=== PATIENT | female | born 1970 | race African-American/Black ===

== ENCOUNTER 2018-02-13 15:37 | Outpatient (CLI) | payer OTHER ==
[~2018-02-13] VITALS: Ht 160 cm; Wt 86.0 kg
[~2018-02-13 15:37] MED LIST: BIRTH CONTROL PILLS PO
[2018-02-13] MEDS ORDERED: AMPYRA10 MG PO (16:19)
[2018-02-13] MEDS ORDERED: PROZAC 10MG10 MG PO (16:21)
[2018-02-13 16:24] LABS: BASO % 0.4 % (0.0-2.0); EOS # 0.1 (0.0-0.7); GRAN # 2.8 (1.4-6.5); GRAN % 54.9 % (42.2-75.2); HEMOGLOBIN 10.6 g/dl (12.5-16.0); LYMPH # 1.3 (1.2-3.4); LYMPH % 26.6 % (20.0-51.0); MEAN CELL VOLUME 91 fl (80.0-100.0); MEAN CORPUSCULAR HEMOGLOBIN 29 pg (27.0-31.0); MEAN CORPUSCULAR HGB CONC 32 g/dl (33.0-37.0); MEAN PLATELET VOLUME 10.9 fl (7.4-10.4); MONO # 0.9 (0.1-0.6); MONO % 16.9 % (1.7-9.3); PLATELET COUNT 220 K/mm3 (130-400); RED BLOOD COUNT 3.69 M/mm3 (4.10-5.30); REDCELL DISTRIBUTION WIDTH-CV 13.5 % (11.5-14.5)
[2018-02-13 16:25] LABS: HEMATOCRIT 33.4 % (37.0-47.0)
[2018-02-13 16:28] VITALS: BP 131/80; PULSE 76; TEMP 98.5
[2018-02-13 16:33] LABS: ALBUMIN 3.6 gm/dL (3.5-5.0); BILIRUBIN,TOTAL 0.3 mg/dL (0.0-1.0); CALCIUM 8.4 mg/dL (8.4-10.2); CREATININE, serum 0.84 mg/dL (0.52-1.25); POTASSIUM 3.7 mmol/L (3.4-5.0)
== END 2018-02-13 19:00 | disposition home or self-care (01) ==
LOC: EUO 15:37
PROVIDERS: Psychiatry & Neurology Neurology
DX: G35 Multiple sclerosis (principal); Z79.899 Other long term (current) drug therapy
CPT/HCPCS: J2323; J7050

== ENCOUNTER 2018-03-19 14:34 | Outpatient (CLI) | payer OTHER ==
[~2018-03-19] VITALS: Ht 160 cm; Wt 60.4 kg
[~2018-03-19 14:34] MED LIST changes: +AMPYRA10 MG PO; +PROZAC 10MG10 MG PO
[2018-03-19 15:23] LABS: BASO % 0.3 % (0.0-2.0); EOS # 0.1 (0.0-0.7); EOS % 1.2 % (0-4.0); GRAN # 2.5 (1.4-6.5); GRAN % 41.9 % (42.2-75.2); HEMOGLOBIN 10.9 g/dl (12.5-16.0); LYMPH # 2.5 (1.2-3.4); LYMPH % 42.2 % (20.0-51.0); MEAN CELL VOLUME 88 fl (80.0-100.0); MEAN CORPUSCULAR HEMOGLOBIN 29 pg (27.0-31.0); MEAN CORPUSCULAR HGB CONC 32 g/dl (33.0-37.0); MEAN PLATELET VOLUME 10.3 fl (7.4-10.4); MONO # 0.8 (0.1-0.6); MONO % 14.2 % (1.7-9.3); PLATELET COUNT 217 K/mm3 (130-400); RED BLOOD COUNT 3.83 M/mm3 (4.10-5.30); REDCELL DISTRIBUTION WIDTH-CV 13.5 % (11.5-14.5)
[2018-03-19 15:24] LABS: HEMATOCRIT 33.7 % (37.0-47.0)
[2018-03-19 15:37] LABS: ALBUMIN 3.7 gm/dL (3.5-5.0); BILIRUBIN,TOTAL 0.5 mg/dL (0.0-1.0); CALCIUM 8.4 mg/dL (8.4-10.2); CREATININE, serum 0.76 mg/dL (0.52-1.25); POTASSIUM 3.4 mmol/L (3.4-5.0); TOTAL PROTEIN 7.2 gm/dL (6.4-8.2)
[2018-03-19 16:58] VITALS: BP 125/75; PULSE 78; TEMP 98.5
[2018-03-19] MEDS ORDERED: TRIVORA-281 TAB PO (17:03)
[2018-03-19] MEDS ORDERED: PROZAC 10MG10 MG PO (17:04)
[2018-03-19] MEDS ORDERED: PRILOSEC 20MG20 MG PO (17:04)
[2018-03-19] MEDS ORDERED: VITAMIN C500 MG PO (17:05)
[2018-03-19] MEDS ORDERED: DETROL LA 2 MG2 MG PO (17:05)
[2018-03-19] MEDS ORDERED: FERROUSAL325 MG PO (17:06)
[2018-03-19] MEDS ORDERED: B-121000 MCG PO (17:06)
[2018-03-19] MEDS ORDERED: FOLIC ACID 11 MG/TA1 PO (17:07)
== END 2018-03-19 19:13 | disposition home or self-care (01) ==
LOC: EUO 14:34
PROVIDERS: Psychiatry & Neurology Neurology
DX: G35 Multiple sclerosis (principal); Z79.899 Other long term (current) drug therapy
CPT/HCPCS: J2323; J7050

== ENCOUNTER 2018-05-20 14:56 | Outpatient (CLI) | payer OTHER ==
[~2018-05-20 14:56] MED LIST changes: +B-121000 MCG PO; +DETROL LA 2 MG2 MG PO; +FERROUSAL325 MG PO; +FOLIC ACID 11 MG/TA1 PO; +PRILOSEC 20MG20 MG PO; +TRIVORA-281 TAB PO; +VITAMIN C500 MG PO
[2018-05-20 15:39] LABS: BASO % 0.5 % (0.0-2.0); EOS # 0.1 (0.0-0.7); EOS % 1.6 % (0-4.0); GRAN # 2.2 (1.4-6.5); GRAN % 39.8 % (42.2-75.2); HEMOGLOBIN 10.6 g/dl (12.5-16.0); LYMPH # 2.4 (1.2-3.4); LYMPH % 43.9 % (20.0-51.0); MEAN CELL VOLUME 90 fl (80.0-100.0); MEAN CORPUSCULAR HEMOGLOBIN 30 pg (27.0-31.0); MEAN CORPUSCULAR HGB CONC 33 g/dl (33.0-37.0); MEAN PLATELET VOLUME 10.7 fl (7.4-10.4); MONO # 0.8 (0.1-0.6); MONO % 13.8 % (1.7-9.3); PLATELET COUNT 244 K/mm3 (130-400); RED BLOOD COUNT 3.58 M/mm3 (4.10-5.30); REDCELL DISTRIBUTION WIDTH-CV 14.7 % (11.5-14.5)
[2018-05-20 15:41] LABS: HEMATOCRIT 32.3 % (37.0-47.0)
[2018-05-20 16:07] LABS: ALBUMIN 3.8 gm/dL (3.5-5.0); BILIRUBIN,TOTAL 0.6 mg/dL (0.0-1.0); CALCIUM 8.5 mg/dL (8.4-10.2); CREATININE, serum 0.8 mg/dL (0.52-1.25); POTASSIUM 3.9 mmol/L (3.4-5.0); TOTAL PROTEIN 7.1 gm/dL (6.4-8.2)
[2018-05-20 17:23] VITALS: BP 125/75; PULSE 71; TEMP 97.8
== END 2018-05-20 17:58 | disposition home or self-care (01) ==
LOC: EUO 14:56
PROVIDERS: Psychiatry & Neurology Neurology
DX: G35 Multiple sclerosis (principal); Z79.899 Other long term (current) drug therapy
CPT/HCPCS: J2323; J7050

== ENCOUNTER 2018-06-17 12:41 | Outpatient (CLI) | payer OTHER ==
[2018-06-17 13:11] LABS: BASO % 0.7 % (0.0-2.0); EOS # 0.1 (0.0-0.7); EOS % 1.4 % (0-4.0); GRAN # 2.2 (1.4-6.5); GRAN % 39.7 % (42.2-75.2); HEMOGLOBIN 10.9 g/dl (12.5-16.0); LYMPH # 2.5 (1.2-3.4); LYMPH % 45.4 % (20.0-51.0); MEAN CELL VOLUME 90 fl (80.0-100.0); MEAN CORPUSCULAR HEMOGLOBIN 29 pg (27.0-31.0); MEAN CORPUSCULAR HGB CONC 32 g/dl (33.0-37.0); MEAN PLATELET VOLUME 9.9 fl (7.4-10.4); MONO # 0.7 (0.1-0.6); MONO % 12.6 % (1.7-9.3); PLATELET COUNT 243 K/mm3 (130-400); RED BLOOD COUNT 3.75 M/mm3 (4.10-5.30); REDCELL DISTRIBUTION WIDTH-CV 14.6 % (11.5-14.5)
[2018-06-17 13:14] LABS: HEMATOCRIT 33.7 % (37.0-47.0)
[2018-06-17 13:18] LABS: ALBUMIN 3.8 gm/dL (3.5-5.0); BILIRUBIN,TOTAL 0.4 mg/dL (0.0-1.0); CALCIUM 8.9 mg/dL (8.4-10.2); CREATININE, serum 0.76 mg/dL (0.52-1.25); POTASSIUM 4.2 mmol/L (3.4-5.0); TOTAL PROTEIN 6.9 gm/dL (6.4-8.2)
[2018-06-17 13:48] VITALS: BP 106/68; PULSE 69; TEMP 98.5
== END 2018-06-17 15:08 | disposition home or self-care (01) ==
LOC: EUO 12:41
PROVIDERS: Psychiatry & Neurology Neurology
DX: G35 Multiple sclerosis (principal); Z79.899 Other long term (current) drug therapy
CPT/HCPCS: J2323; J7050

== ENCOUNTER 2018-07-18 12:55 | Outpatient (CLI) | payer OTHER ==
[2018-07-18 13:28] LABS: BASO % 0.7 % (0.0-2.0); EOS # 0.1 (0.0-0.7); EOS % 1.8 % (0-4.0); HEMOGLOBIN 11.5 g/dl (12.5-16.0); LYMPH # 2.7 (1.2-3.4); LYMPH % 48.5 % (20.0-51.0); MEAN CELL VOLUME 91 fl (80.0-100.0); MEAN CORPUSCULAR HEMOGLOBIN 29 pg (27.0-31.0); MEAN CORPUSCULAR HGB CONC 32 g/dl (33.0-37.0); MONO # 0.7 (0.1-0.6); MONO % 11.9 % (1.7-9.3); PLATELET COUNT 525 K/mm3 (130-400); RED BLOOD COUNT 3.97 M/mm3 (4.10-5.30); REDCELL DISTRIBUTION WIDTH-CV 14.3 % (11.5-14.5)
[2018-07-18 13:29] LABS: HEMATOCRIT 36.1 % (37.0-47.0)
[2018-07-18 13:40] LABS: ALBUMIN 4.3 gm/dL (3.5-5.0); BILIRUBIN,TOTAL 0.4 mg/dL (0.0-1.0); CALCIUM 9.3 mg/dL (8.4-10.2); CREATININE, serum 0.86 mg/dL (0.52-1.25); POTASSIUM 3.9 mmol/L (3.4-5.0); TOTAL PROTEIN 8.1 gm/dL (6.4-8.2)
[2018-07-18 14:17] VITALS: BP 99/61; PULSE 73; TEMP 97.9
== END 2018-07-18 15:30 | disposition home or self-care (01) ==
LOC: EUO 12:55
PROVIDERS: Psychiatry & Neurology Neurology
DX: G35 Multiple sclerosis (principal); Z79.899 Other long term (current) drug therapy
CPT/HCPCS: J2323; J7050

== ENCOUNTER 2018-08-15 14:02 | Outpatient (CLI) | payer OTHER ==
[~2018-08-15] VITALS: Ht 160 cm; Wt 62.7 kg
[2018-08-15 14:48] LABS: BASO % 0.5 % (0.0-2.0); EOS # 0.1 (0.0-0.7); GRAN # 2.4 (1.4-6.5); HEMATOCRIT 38.5 % (37.0-47.0); HEMOGLOBIN 12.4 g/dl (12.5-16.0); LYMPH # 3.4 (1.2-3.4); LYMPH % 50.8 % (20.0-51.0); MEAN CELL VOLUME 90 fl (80.0-100.0); MEAN CORPUSCULAR HEMOGLOBIN 29 pg (27.0-31.0); MEAN CORPUSCULAR HGB CONC 32 g/dl (33.0-37.0); MEAN PLATELET VOLUME 9.7 fl (7.4-10.4); MONO # 0.7 (0.1-0.6); MONO % 10.5 % (1.7-9.3); PLATELET COUNT 308 K/mm3 (130-400); RED BLOOD COUNT 4.26 M/mm3 (4.10-5.30); REDCELL DISTRIBUTION WIDTH-CV 14.6 % (11.5-14.5)
[2018-08-15 14:52] LABS: ALBUMIN 4.4 gm/dL (3.5-5.0); BILIRUBIN,TOTAL 0.4 mg/dL (0.0-1.0); CALCIUM 9.3 mg/dL (8.4-10.2); CREATININE, serum 0.93 mg/dL (0.52-1.25); POTASSIUM 4.1 mmol/L (3.4-5.0); TOTAL PROTEIN 8.1 gm/dL (6.4-8.2)
[2018-08-15 15:37] VITALS: BP 110/67; PULSE 67; TEMP 97
== END 2018-08-15 16:44 | disposition home or self-care (01) ==
LOC: EUO 14:02
PROVIDERS: Psychiatry & Neurology Neurology
DX: G35 Multiple sclerosis (principal); Z79.899 Other long term (current) drug therapy
CPT/HCPCS: J2323

== ENCOUNTER 2018-09-12 13:54 | Outpatient (CLI) | payer OTHER ==
[~2018-09-12] VITALS: Ht 160 cm; Wt 64.2 kg
[2018-09-12 14:36] LABS: BASO # 0.1 (0.0-0.2); BASO % 1.1 % (0.0-2.0); EOS # 0.1 (0.0-0.7); EOS % 2.4 % (0-4.0); GRAN # 1.3 (1.4-6.5); LYMPH # 2.6 (1.2-3.4); LYMPH % 55.8 % (20.0-51.0); MEAN CELL VOLUME 89 fl (80.0-100.0); MEAN CORPUSCULAR HEMOGLOBIN 29 pg (27.0-31.0); MEAN CORPUSCULAR HGB CONC 33 g/dl (33.0-37.0); MEAN PLATELET VOLUME 9.5 fl (7.4-10.4); MONO # 0.6 (0.1-0.6); MONO % 13.5 % (1.7-9.3); PLATELET COUNT 266 K/mm3 (130-400); RED BLOOD COUNT 3.76 M/mm3 (4.10-5.30); REDCELL DISTRIBUTION WIDTH-CV 14.6 % (11.5-14.5)
[2018-09-12 14:42] LABS: HEMATOCRIT 33.4 % (37.0-47.0)
[2018-09-12 14:46] LABS: ALBUMIN 3.7 gm/dL (3.5-5.0); BILIRUBIN,TOTAL 0.3 mg/dL (0.0-1.0); CALCIUM 8.7 mg/dL (8.4-10.2); CREATININE, serum 1.02 mg/dL (0.52-1.25); POTASSIUM 4.3 mmol/L (3.4-5.0); TOTAL PROTEIN 6.9 gm/dL (6.4-8.2)
[2018-09-12 15:21] VITALS: BP 100/66; PULSE 69; TEMP 97.9
== END 2018-09-12 18:25 | disposition home or self-care (01) ==
LOC: EUO 13:54
PROVIDERS: Psychiatry & Neurology Neurology
DX: G35 Multiple sclerosis (principal); Z79.899 Other long term (current) drug therapy
CPT/HCPCS: J2323

== ENCOUNTER 2018-10-10 10:50 | Outpatient (CLI) | payer OTHER ==
[~2018-10-10] VITALS: Ht 160 cm; Wt 64.3 kg
[2018-10-10 11:18] LABS: BASO % 0.5 % (0.0-2.0); EOS # 0.1 (0.0-0.7); EOS % 1.9 % (0-4.0); GRAN # 2.3 (1.4-6.5); GRAN % 40.4 % (42.2-75.2); HEMATOCRIT 35.7 % (37.0-47.0); HEMOGLOBIN 11.5 g/dl (12.5-16.0); LYMPH # 2.7 (1.2-3.4); LYMPH % 45.8 % (20.0-51.0); MEAN CELL VOLUME 90 fl (80.0-100.0); MEAN CORPUSCULAR HEMOGLOBIN 29 pg (27.0-31.0); MEAN CORPUSCULAR HGB CONC 32 g/dl (33.0-37.0); MEAN PLATELET VOLUME 9.4 fl (7.4-10.4); MONO # 0.6 (0.1-0.6); MONO % 11.1 % (1.7-9.3); PLATELET COUNT 277 K/mm3 (130-400); RED BLOOD COUNT 3.96 M/mm3 (4.10-5.30); REDCELL DISTRIBUTION WIDTH-CV 15.2 % (11.5-14.5)
[2018-10-10 11:30] LABS: ALBUMIN 3.9 gm/dL (3.5-5.0); BILIRUBIN,TOTAL 0.4 mg/dL (0.0-1.0); CALCIUM 8.6 mg/dL (8.4-10.2); CREATININE, serum 0.87 (0.52-1.25); POTASSIUM 4.3 mmol/L (3.4-5.0); TOTAL PROTEIN 7.1 gm/dL (6.4-8.2)
[2018-10-10 11:54] VITALS: BP 104/64; PULSE 77; TEMP 97.9
== END 2018-10-10 13:31 | disposition home or self-care (01) ==
LOC: EUO 10:50
PROVIDERS: Psychiatry & Neurology Neurology
DX: G35 Multiple sclerosis (principal); Z79.899 Other long term (current) drug therapy
CPT/HCPCS: J2323; J7050

== ENCOUNTER 2018-11-07 12:46 | Outpatient (CLI) | payer OTHER ==
[~2018-11-07] VITALS: Ht 160 cm; Wt 65.0 kg
[2018-11-07 13:18] LABS: BASO % 0.5 % (0.0-2.0); EOS # 0.1 (0.0-0.7); EOS % 1.9 % (0-4.0); GRAN # 2.4 (1.4-6.5); GRAN % 37.5 % (42.2-75.2); HEMOGLOBIN 11.6 g/dl (12.5-16.0); LYMPH # 3.1 (1.2-3.4); LYMPH % 49.4 % (20.0-51.0); MEAN CELL VOLUME 90 fl (80.0-100.0); MEAN CORPUSCULAR HEMOGLOBIN 29 pg (27.0-31.0); MEAN CORPUSCULAR HGB CONC 32 g/dl (33.0-37.0); MEAN PLATELET VOLUME 9.6 fl (7.4-10.4); MONO # 0.7 (0.1-0.6); MONO % 10.5 % (1.7-9.3); PLATELET COUNT 286 K/mm3 (130-400); RED BLOOD COUNT 3.97 M/mm3 (4.10-5.30); REDCELL DISTRIBUTION WIDTH-CV 14.7 % (11.5-14.5)
[2018-11-07 13:19] LABS: HEMATOCRIT 35.8 % (37.0-47.0)
[2018-11-07 13:31] LABS: ALBUMIN 3.9 gm/dL (3.5-5.0); BILIRUBIN,TOTAL 0.4 mg/dL (0.0-1.0); CALCIUM 8.7 mg/dL (8.4-10.2); CREATININE, serum 0.83 (0.52-1.25); POTASSIUM 4.1 mmol/L (3.4-5.0); TOTAL PROTEIN 7.1 gm/dL (6.4-8.2)
[2018-11-07 14:10] VITALS: BP 106/61; PULSE 80; TEMP 98.2
== END 2018-11-07 15:32 | disposition home or self-care (01) ==
LOC: EUO 12:46
PROVIDERS: Psychiatry & Neurology Neurology
DX: G35 Multiple sclerosis (principal); Z79.899 Other long term (current) drug therapy
CPT/HCPCS: J2323; J7050

== ENCOUNTER 2018-12-05 12:55 | Outpatient (CLI) | payer OTHER ==
[~2018-12-05] VITALS: Ht 160 cm; Wt 66.6 kg
[2018-12-05 13:35] LABS: BASO # 0.1 (0.0-0.2); BASO % 0.8 % (0.0-2.0); EOS # 0.1 (0.0-0.7); EOS % 1.9 % (0-4.0); GRAN # 2.4 (1.4-6.5); HEMATOCRIT 34.8 % (37.0-47.0); HEMOGLOBIN 11.5 g/dl (12.5-16.0); LYMPH % 47.6 % (20.0-51.0); MEAN CELL VOLUME 91 fl (80.0-100.0); MEAN CORPUSCULAR HEMOGLOBIN 30 pg (27.0-31.0); MEAN CORPUSCULAR HGB CONC 33 g/dl (33.0-37.0); MEAN PLATELET VOLUME 9.6 fl (7.4-10.4); MONO # 0.7 (0.1-0.6); MONO % 11.5 % (1.7-9.3); PLATELET COUNT 270 K/mm3 (130-400); RED BLOOD COUNT 3.82 M/mm3 (4.10-5.30); REDCELL DISTRIBUTION WIDTH-CV 14.8 % (11.5-14.5)
[2018-12-05 13:47] LABS: ALBUMIN 3.8 gm/dL (3.5-5.0); BILIRUBIN,TOTAL 0.5 mg/dL (0.0-1.0); CALCIUM 8.4 mg/dL (8.4-10.2); CREATININE, serum 0.94 (0.52-1.25); POTASSIUM 3.9 mmol/L (3.4-5.0); TOTAL PROTEIN 7.3 gm/dL (6.4-8.2)
[2018-12-05 14:30] VITALS: BP 114/65; PULSE 79; TEMP 98.1
== END 2018-12-05 16:19 | disposition home or self-care (01) ==
LOC: EUO 12:55
PROVIDERS: Psychiatry & Neurology Neurology
DX: G35 Multiple sclerosis (principal); Z79.899 Other long term (current) drug therapy
CPT/HCPCS: J2323; J7050

== ENCOUNTER 2019-01-02 14:11 | Outpatient (CLI) | payer OTHER ==
[2019-01-02 14:00] VITALS: BP 107/60; PULSE 63; TEMP 98.2
[2019-01-02 14:54] LABS: BASO % 0.4 % (0.0-2.0); EOS # 0.1 (0.0-0.7); EOS % 1.6 % (0-4.0); GRAN # 1.8 (1.4-6.5); HEMOGLOBIN 11.5 g/dl (12.5-16.0); LYMPH % 54.4 % (20.0-51.0); MEAN CELL VOLUME 90 fl (80.0-100.0); MEAN CORPUSCULAR HEMOGLOBIN 30 pg (27.0-31.0); MEAN CORPUSCULAR HGB CONC 33 g/dl (33.0-37.0); MEAN PLATELET VOLUME 9.9 fl (7.4-10.4); MONO # 0.6 (0.1-0.6); MONO % 11.2 % (1.7-9.3); PLATELET COUNT 281 K/mm3 (130-400); RED BLOOD COUNT 3.85 M/mm3 (4.10-5.30); REDCELL DISTRIBUTION WIDTH-CV 14.5 % (11.5-14.5)
[2019-01-02 15:00] LABS: HEMATOCRIT 34.8 % (37.0-47.0)
[2019-01-02 15:21] LABS: ALBUMIN 3.7 gm/dL (3.5-5.0); BILIRUBIN,TOTAL 0.4 mg/dL (0.0-1.0); CALCIUM 8.8 mg/dL (8.4-10.2); CREATININE, serum 0.79 (0.52-1.25); TOTAL PROTEIN 7.1 gm/dL (6.4-8.2)
== END 2019-01-02 17:12 | disposition home or self-care (01) ==
LOC: EUO 14:11
PROVIDERS: Psychiatry & Neurology Neurology
DX: G35 Multiple sclerosis (principal); Z79.899 Other long term (current) drug therapy
CPT/HCPCS: J2323

== ENCOUNTER 2019-01-30 14:13 | Outpatient (CLI) | payer OTHER ==
[2019-01-30 14:40] LABS: MEAN CELL VOLUME 90 fl (80.0-100.0); MEAN CORPUSCULAR HEMOGLOBIN 29 pg (27.0-31.0); MEAN CORPUSCULAR HGB CONC 32 g/dl (33.0-37.0); MEAN PLATELET VOLUME 9.7 fl (7.4-10.4); PLATELET COUNT 294 K/mm3 (130-400); REDCELL DISTRIBUTION WIDTH-CV 14.4 % (11.5-14.5)
[2019-01-30 15:00] VITALS: BP 107/58; PULSE 66; TEMP 98
[2019-01-30 15:00] LABS: ALBUMIN 3.9 gm/dL (3.5-5.0); BILIRUBIN,TOTAL 0.4 mg/dL (0.0-1.0); CALCIUM 8.7 mg/dL (8.4-10.2); CREATININE, serum 0.82 (0.52-1.25); POTASSIUM 4.3 mmol/L (3.4-5.0); TOTAL PROTEIN 7.2 gm/dL (6.4-8.2)
[2019-01-30 15:22] LABS: BAND 4 % (0-10); EOSINOPHIL 2 % (0-4); LYMPHOCYTE 54 % (20.0-51.0); NEUTROPHILS 39 % (42.0-75.2); NUCLEATED RED BLOOD CELL 1 (0-6)
[2019-01-30 15:23] LABS: PLATELET ESTIMATE NORMAL (NORMAL)
== END 2019-01-30 19:11 | disposition home or self-care (01) ==
LOC: EUO 14:13
PROVIDERS: Psychiatry & Neurology Neurology
DX: G35 Multiple sclerosis (principal); Z79.899 Other long term (current) drug therapy
CPT/HCPCS: J2323

== ENCOUNTER 2019-02-27 14:06 | Outpatient (CLI) | payer OTHER ==
[~2019-02-27] VITALS: Ht 160 cm; Wt 66.0 kg
[2019-02-27 14:15] VITALS: BP 109/65; PULSE 70; TEMP 98
[2019-02-27 14:40] LABS: BASO % 0.5 % (0.0-2.0); EOS # 0.1 (0.0-0.7); EOS % 1.9 % (0-4.0); GRAN # 2.3 (1.4-6.5); GRAN % 36.7 % (42.2-75.2); HEMOGLOBIN 11.5 g/dl (12.5-16.0); LYMPH # 3.2 (1.2-3.4); MEAN CELL VOLUME 89 fl (80.0-100.0); MEAN CORPUSCULAR HEMOGLOBIN 30 pg (27.0-31.0); MEAN CORPUSCULAR HGB CONC 33 g/dl (33.0-37.0); MEAN PLATELET VOLUME 9.7 fl (7.4-10.4); MONO # 0.6 (0.1-0.6); MONO % 9.7 % (1.7-9.3); PLATELET COUNT 281 K/mm3 (130-400); RED BLOOD COUNT 3.88 M/mm3 (4.10-5.30); REDCELL DISTRIBUTION WIDTH-CV 14.1 % (11.5-14.5)
[2019-02-27 14:42] LABS: HEMATOCRIT 34.7 % (37.0-47.0)
[2019-02-27 14:47] LABS: ALBUMIN 3.9 gm/dL (3.5-5.0); BILIRUBIN,TOTAL 0.4 mg/dL (0.0-1.0); CALCIUM 8.8 mg/dL (8.4-10.2); CREATININE, serum 0.85 (0.52-1.25); POTASSIUM 3.9 mmol/L (3.4-5.0)
--- NOTE | 2019-02-27 15:49 | NUR ---
Report to Chandrakant Srivastava RN who assumed care at this time.
== END 2019-02-27 16:28 | disposition home or self-care (01) ==
LOC: EUO 14:06
PROVIDERS: Psychiatry & Neurology Neurology
DX: G35 Multiple sclerosis (principal); Z79.899 Other long term (current) drug therapy
CPT/HCPCS: J2323; J7050

== ENCOUNTER 2019-03-27 14:04 | Outpatient (CLI) | payer OTHER ==
[~2019-03-27] VITALS: Ht 160 cm; Wt 67.0 kg
[2019-03-27 14:20] VITALS: BP 108/61; PULSE 76; TEMP 98.4
[2019-03-27 14:28] LABS: BASO % 0.6 % (0.0-2.0); EOS # 0.1 (0.0-0.7); GRAN # 2.3 (1.4-6.5); GRAN % 36.6 % (42.2-75.2); HEMOGLOBIN 11.7 g/dl (12.5-16.0); LYMPH # 3.3 (1.2-3.4); LYMPH % 51.1 % (20.0-51.0); MEAN CELL VOLUME 90 fl (80.0-100.0); MEAN CORPUSCULAR HEMOGLOBIN 30 pg (27.0-31.0); MEAN CORPUSCULAR HGB CONC 33 g/dl (33.0-37.0); MEAN PLATELET VOLUME 9.5 fl (7.4-10.4); MONO # 0.6 (0.1-0.6); MONO % 9.4 % (1.7-9.3); PLATELET COUNT 299 K/mm3 (130-400); RED BLOOD COUNT 3.96 M/mm3 (4.10-5.30); REDCELL DISTRIBUTION WIDTH-CV 14.4 % (11.5-14.5)
[2019-03-27 14:47] LABS: HEMATOCRIT 35.7 % (37.0-47.0)
[2019-03-27 14:59] LABS: ALBUMIN 3.9 gm/dL (3.5-5.0); BILIRUBIN,TOTAL 0.3 mg/dL (0.0-1.0); CALCIUM 8.5 mg/dL (8.4-10.2); CREATININE, serum 0.79 (0.52-1.25); POTASSIUM 3.8 mmol/L (3.4-5.0); TOTAL PROTEIN 7.1 gm/dL (6.4-8.2)
== END 2019-03-27 17:49 | disposition home or self-care (01) ==
LOC: EUO 14:04
PROVIDERS: Psychiatry & Neurology Neurology
DX: G35 Multiple sclerosis (principal); Z79.899 Other long term (current) drug therapy
CPT/HCPCS: J2323; J7050

== ENCOUNTER 2019-04-24 10:49 | Outpatient (CLI) | payer OTHER ==
[~2019-04-24] VITALS: Ht 160 cm; Wt 67.4 kg
[2019-04-24 11:46] LABS: ALBUMIN 4.1 gm/dL (3.5-5.0); BILIRUBIN,TOTAL 0.8 mg/dL (0.0-1.0); CALCIUM 8.9 mg/dL (8.4-10.2); CREATININE, serum 0.74 (0.52-1.25); POTASSIUM 4.6 mmol/L (3.4-5.0); TOTAL PROTEIN 7.4 gm/dL (6.4-8.2)
[2019-04-24 11:51] LABS: BASO % 0.5 % (0.0-2.0); EOS # 0.1 (0.0-0.7); EOS % 1.4 % (0-4.0); GRAN # 2.3 (1.4-6.5); GRAN % 36.9 % (42.2-75.2); HEMOGLOBIN 11.8 g/dl (12.5-16.0); LYMPH # 2.9 (1.2-3.4); LYMPH % 46.9 % (20.0-51.0); MEAN CELL VOLUME 91 fl (80.0-100.0); MEAN CORPUSCULAR HEMOGLOBIN 29 pg (27.0-31.0); MEAN CORPUSCULAR HGB CONC 32 g/dl (33.0-37.0); MEAN PLATELET VOLUME 10.4 fl (7.4-10.4); MONO # 0.9 (0.1-0.6); PLATELET COUNT 273 K/mm3 (130-400); RED BLOOD COUNT 4.03 M/mm3 (4.10-5.30); REDCELL DISTRIBUTION WIDTH-CV 14.6 % (11.5-14.5)
[2019-04-24 12:03] LABS: HEMATOCRIT 36.7 % (37.0-47.0)
[2019-04-24 13:30] VITALS: BP 105/62; PULSE 69; TEMP 98.5
== END 2019-04-24 14:12 | disposition home or self-care (01) ==
LOC: EUO 10:49
PROVIDERS: Psychiatry & Neurology Neurology
DX: G35 Multiple sclerosis (principal); Z79.899 Other long term (current) drug therapy
CPT/HCPCS: J2323; J7050

== ENCOUNTER 2019-05-21 13:04 | Outpatient (CLI) | payer OTHER ==
[~2019-05-21] VITALS: Ht 160 cm; Wt 67.1 kg
[2019-05-21 13:37] VITALS: BP 98/64; PULSE 69; TEMP 98.6
[2019-05-21 13:37] LABS: BASO % 0.3 % (0.0-2.0); EOS # 0.1 (0.0-0.7); EOS % 1.2 % (0-4.0); GRAN # 2.1 (1.4-6.5); GRAN % 34.4 % (42.2-75.2); HEMOGLOBIN 11.3 g/dl (12.5-16.0); LYMPH # 3.1 (1.2-3.4); LYMPH % 51.3 % (20.0-51.0); MEAN CELL VOLUME 89 fl (80.0-100.0); MEAN CORPUSCULAR HEMOGLOBIN 29 pg (27.0-31.0); MEAN CORPUSCULAR HGB CONC 33 g/dl (33.0-37.0); MEAN PLATELET VOLUME 9.8 fl (7.4-10.4); MONO # 0.8 (0.1-0.6); MONO % 12.6 % (1.7-9.3); PLATELET COUNT 284 K/mm3 (130-400); RED BLOOD COUNT 3.88 M/mm3 (4.10-5.30); REDCELL DISTRIBUTION WIDTH-CV 14.8 % (11.5-14.5)
[2019-05-21 13:40] LABS: HEMATOCRIT 34.6 % (37.0-47.0)
[2019-05-21 13:52] LABS: BILIRUBIN,TOTAL 0.3 mg/dL (0.0-1.0); CALCIUM 8.6 mg/dL (8.4-10.2); CREATININE, serum 0.76 (0.52-1.25); POTASSIUM 4.2 mmol/L (3.4-5.0); TOTAL PROTEIN 7.3 gm/dL (6.4-8.2)
== END 2019-05-21 19:00 | disposition home or self-care (01) ==
LOC: EUO 13:04
PROVIDERS: Psychiatry & Neurology Neurology
DX: G35 Multiple sclerosis (principal)
CPT/HCPCS: J2323; J7050

== ENCOUNTER → 2019-06-30 | Outpatient (CLI) | payer OTHER | LOC: MHCPAIN 15:26 | DX: M47.817 Spondylosis without myelopathy or radiculopathy, lumbosacral region (principal); M54.16 Radiculopathy, lumbar region | CPT/HCPCS: G0463 ==

== ENCOUNTER 2019-07-15 12:42 | Outpatient (CLI) | payer OTHER ==
[~2019-07-15] VITALS: Ht 160 cm; Wt 64.3 kg
[2019-07-15 13:17] LABS: BASO # 0.1 (0.0-0.2); BASO % 0.8 % (0.0-2.0); EOS # 0.1 (0.0-0.7); GRAN # 2.6 (1.4-6.5); GRAN % 38.7 % (42.2-75.2); HEMOGLOBIN 11.2 g/dl (12.5-16.0); LYMPH # 3.2 (1.2-3.4); LYMPH % 49.2 % (20.0-51.0); MEAN CELL VOLUME 91 fl (80.0-100.0); MEAN CORPUSCULAR HEMOGLOBIN 29 pg (27.0-31.0); MEAN CORPUSCULAR HGB CONC 32 g/dl (33.0-37.0); MEAN PLATELET VOLUME 9.5 fl (7.4-10.4); MONO # 0.6 (0.1-0.6); PLATELET COUNT 385 K/mm3 (130-400); RED BLOOD COUNT 3.91 M/mm3 (4.10-5.30); REDCELL DISTRIBUTION WIDTH-CV 15.4 % (11.5-14.5)
[2019-07-15 13:30] LABS: ALBUMIN 4.1 gm/dL (3.5-5.0); BILIRUBIN,TOTAL 0.5 mg/dL (0.0-1.0); CALCIUM 8.6 mg/dL (8.4-10.2); CREATININE, serum 0.81 (0.52-1.25); POTASSIUM 3.8 mmol/L (3.4-5.0); TOTAL PROTEIN 7.7 gm/dL (6.4-8.2)
[2019-07-15 13:31] LABS: HEMATOCRIT 35.6 % (37.0-47.0)
[2019-07-15 14:14] VITALS: BP 108/63; PULSE 70; TEMP 97.8
== END 2019-07-15 17:00 | disposition home or self-care (01) ==
LOC: EUO 12:42
PROVIDERS: Psychiatry & Neurology Neurology
DX: G35 Multiple sclerosis (principal); Z79.899 Other long term (current) drug therapy
CPT/HCPCS: J2323; J7050

== ENCOUNTER → 2019-08-06 | Outpatient (CLI) | payer OTHER | LOC: MHCPAIN 14:49 | DX: M54.17 Radiculopathy, lumbosacral region (principal); M48.061 Spinal stenosis, lumbar region without neurogenic claudication | CPT/HCPCS: G0463 ==

== ENCOUNTER 2019-08-12 10:23 | Outpatient (CLI) | payer OTHER ==
[~2019-08-12] VITALS: Ht 160 cm; Wt 64.4 kg
[2019-08-12 11:00] VITALS: BP 113/74; PULSE 77; TEMP 97.8
[2019-08-12 11:10] LABS: BASO % 0.3 % (0.0-2.0); EOS # 0.1 (0.0-0.7); EOS % 1.5 % (0-4.0); GRAN # 2.8 (1.4-6.5); HEMOGLOBIN 11.5 g/dl (12.5-16.0); LYMPH % 46.1 % (20.0-51.0); MEAN CELL VOLUME 91 fl (80.0-100.0); MEAN CORPUSCULAR HEMOGLOBIN 28 pg (27.0-31.0); MEAN CORPUSCULAR HGB CONC 31 g/dl (33.0-37.0); MEAN PLATELET VOLUME 9.9 fl (7.4-10.4); MONO # 0.6 (0.1-0.6); MONO % 8.8 % (1.7-9.3); PLATELET COUNT 257 K/mm3 (130-400); RED BLOOD COUNT 4.05 M/mm3 (4.10-5.30); REDCELL DISTRIBUTION WIDTH-CV 15.5 % (11.5-14.5)
[2019-08-12 11:18] LABS: HEMATOCRIT 36.9 % (37.0-47.0)
[2019-08-12 11:28] LABS: ALBUMIN 4.4 gm/dL (3.5-5.0); BILIRUBIN,TOTAL 0.8 mg/dL (0.0-1.0); CALCIUM 8.9 mg/dL (8.4-10.2); CREATININE, serum 0.78 (0.52-1.25); TOTAL PROTEIN 7.9 gm/dL (6.4-8.2)
== END 2019-08-12 13:50 | disposition home or self-care (01) ==
LOC: EUO 10:23
PROVIDERS: Psychiatry & Neurology Neurology
DX: G35 Multiple sclerosis (principal); Z79.899 Other long term (current) drug therapy
CPT/HCPCS: J2323; J7050

== ENCOUNTER → 2019-08-18 | Outpatient (CLI) | payer OTHER | LOC: MHCPAIN 14:28 | DX: M54.5 Low back pain (principal); R60.0 Localized edema ==

== ENCOUNTER → 2019-09-02 | Outpatient (CLI) | payer OTHER | LOC: MHCPAIN 15:08 | DX: M47.816 Spondylosis without myelopathy or radiculopathy, lumbar region (principal); M53.3 Sacrococcygeal disorders, not elsewhere classified | CPT/HCPCS: G0463 ==

== ENCOUNTER 2019-10-07 13:13 | Outpatient (CLI) | payer OTHER ==
[~2019-10-07] VITALS: Ht 160 cm; Wt 66.9 kg
[2019-10-07 13:36] LABS: BASO % 0.3 % (0.0-2.0); EOS # 0.1 (0.0-0.7); EOS % 1.2 % (0-4.0); GRAN % 40.2 % (42.2-75.2); HEMATOCRIT 37.1 % (37.0-47.0); LYMPH # 3.7 (1.2-3.4); LYMPH % 49.6 % (20.0-51.0); MEAN CELL VOLUME 88 fl (80.0-100.0); MEAN CORPUSCULAR HEMOGLOBIN 29 pg (27.0-31.0); MEAN CORPUSCULAR HGB CONC 32 g/dl (33.0-37.0); MEAN PLATELET VOLUME 9.8 fl (7.4-10.4); MONO # 0.6 (0.1-0.6); MONO % 8.4 % (1.7-9.3); PLATELET COUNT 278 K/mm3 (130-400); REDCELL DISTRIBUTION WIDTH-CV 15.3 % (11.5-14.5)
[2019-10-07 13:46] LABS: ALBUMIN 4.1 gm/dL (3.5-5.0); BILIRUBIN,TOTAL 0.5 mg/dL (0.0-1.0); CALCIUM 8.8 mg/dL (8.4-10.2); CREATININE, serum 0.73 (0.52-1.25); POTASSIUM 3.7 mmol/L (3.4-5.0); TOTAL PROTEIN 7.5 gm/dL (6.4-8.2)
[2019-10-07 14:35] VITALS: BP 109/62; PULSE 69; TEMP 97.6
== END 2019-10-07 15:40 | disposition home or self-care (01) ==
LOC: EUO 13:13
PROVIDERS: Psychiatry & Neurology Neurology
DX: G35 Multiple sclerosis (principal); Z79.2 Long term (current) use of antibiotics
CPT/HCPCS: J2323; J7050

== ENCOUNTER 2019-11-04 13:16 | Outpatient (CLI) | payer OTHER ==
[~2019-11-04] VITALS: Ht 160 cm; Wt 67.0 kg
[2019-11-04 13:43] LABS: BASO % 0.3 % (0.0-2.0); EOS # 0.1 (0.0-0.7); EOS % 1.2 % (0-4.0); GRAN # 2.5 (1.4-6.5); GRAN % 36.1 % (42.2-75.2); HEMOGLOBIN 11.4 g/dl (12.5-16.0); LYMPH # 3.7 (1.2-3.4); LYMPH % 52.9 % (20.0-51.0); MEAN CELL VOLUME 90 fl (80.0-100.0); MEAN CORPUSCULAR HEMOGLOBIN 29 pg (27.0-31.0); MEAN CORPUSCULAR HGB CONC 32 g/dl (33.0-37.0); MEAN PLATELET VOLUME 10.1 fl (7.4-10.4); MONO # 0.6 (0.1-0.6); MONO % 9.2 % (1.7-9.3); PLATELET COUNT 270 K/mm3 (130-400); RED BLOOD COUNT 3.99 M/mm3 (4.10-5.30); REDCELL DISTRIBUTION WIDTH-CV 14.7 % (11.5-14.5)
[2019-11-04 13:44] LABS: HEMATOCRIT 35.8 % (37.0-47.0)
[2019-11-04 14:20] LABS: ALBUMIN 4.2 gm/dL (3.5-5.0); BILIRUBIN,TOTAL 0.6 mg/dL (0.0-1.0); CALCIUM 8.8 mg/dL (8.4-10.2); CREATININE, serum 0.81 (0.52-1.25); POTASSIUM 4.1 mmol/L (3.4-5.0); TOTAL PROTEIN 7.5 gm/dL (6.4-8.2)
[2019-11-04] MEDS ORDERED: TYSABRI20 MG/ML IV (14:35)
[2019-11-04] MEDS ORDERED: VOLTAREN 75 DR75 MG PO (14:38)
[2019-11-04] MEDS ORDERED: NEURONTIN100 MG/CAP PO (14:38)
[2019-11-04 14:39] VITALS: BP 101/71; TEMP 97.8
[2019-11-04 15:01] VITALS: BP 106/72; PULSE 61
== END 2019-11-04 15:47 | disposition home or self-care (01) ==
LOC: EUO 13:16
PROVIDERS: Psychiatry & Neurology Neurology
DX: G35 Multiple sclerosis (principal); Z79.899 Other long term (current) drug therapy
CPT/HCPCS: J2323; J7050

== ENCOUNTER → 2019-11-20 | Outpatient (CLI) | payer OTHER ==
[~2019-11-20] MED LIST changes: +NEURONTIN100 MG/CAP PO; +TYSABRI20 MG/ML IV; +VOLTAREN 75 DR75 MG PO
== END ==
LOC: MHCPAIN 10:05
DX: M54.5 Low back pain (principal); M53.3 Sacrococcygeal disorders, not elsewhere classified; M48.061 Spinal stenosis, lumbar region without neurogenic claudication; G89.29 Other chronic pain
CPT/HCPCS: G0463; J1040; Q9967

== ENCOUNTER 2019-12-02 13:39 | Outpatient (CLI) | payer OTHER ==
[~2019-12-02] VITALS: Ht 160 cm; Wt 65.5 kg
[2019-12-02 14:08] LABS: HEMOGLOBIN 11.1 g/dl (12.5-16.0); MEAN CELL VOLUME 90 fl (80.0-100.0); MEAN CORPUSCULAR HEMOGLOBIN 30 pg (27.0-31.0); MEAN CORPUSCULAR HGB CONC 33 g/dl (33.0-37.0); MEAN PLATELET VOLUME 9.9 fl (7.4-10.4); PLATELET COUNT 266 K/mm3 (130-400); RED BLOOD COUNT 3.76 M/mm3 (4.10-5.30); REDCELL DISTRIBUTION WIDTH-CV 15.2 % (11.5-14.5)
[2019-12-02 14:09] LABS: HEMATOCRIT 33.8 % (37.0-47.0)
[2019-12-02 14:22] LABS: ALBUMIN 3.9 gm/dL (3.5-5.0); BILIRUBIN,TOTAL 0.8 mg/dL (0.0-1.0); CALCIUM 8.8 mg/dL (8.4-10.2); CREATININE, serum 0.83 (0.52-1.25); POTASSIUM 4.7 mmol/L (3.4-5.0); TOTAL PROTEIN 7.4 gm/dL (6.4-8.2)
[2019-12-02 15:45] VITALS: BP 123/74; PULSE 92; TEMP 97.3
[2019-12-02 15:58] VITALS: BP 110/74; PULSE 74
== END 2019-12-02 16:55 | disposition home or self-care (01) ==
LOC: EUO 13:39
PROVIDERS: Psychiatry & Neurology Neurology
DX: G35 Multiple sclerosis (principal)
CPT/HCPCS: J2323; J7050

== ENCOUNTER → 2019-12-09 | Outpatient (CLI) | payer OTHER | LOC: MHCPAIN 15:21 | DX: M47.817 Spondylosis without myelopathy or radiculopathy, lumbosacral region (principal); M54.5 Low back pain; M53.3 Sacrococcygeal disorders, not elsewhere classified; M48.061 Spinal stenosis, lumbar region without neurogenic claudication; M54.16 Radiculopathy, lumbar region | CPT/HCPCS: G0463 ==

== ENCOUNTER → 2019-12-30 | Outpatient (CLI) | payer OTHER ==
[~2019-12-30] VITALS: Ht 160 cm; Wt 67.0 kg
[2019-12-30 14:38] LABS: BASO % 0.5 % (0.0-2.0); EOS # 0.1 (0.0-0.7); EOS % 1.4 % (0-4.0); GRAN # 2.6 (1.4-6.5); GRAN % 39.2 % (42.2-75.2); HEMOGLOBIN 10.5 g/dl (12.5-16.0); LYMPH # 3.2 (1.2-3.4); LYMPH % 49.2 % (20.0-51.0); MEAN CELL VOLUME 90 fl (80.0-100.0); MEAN CORPUSCULAR HEMOGLOBIN 30 pg (27.0-31.0); MEAN CORPUSCULAR HGB CONC 33 g/dl (33.0-37.0); MEAN PLATELET VOLUME 10.1 fl (7.4-10.4); MONO # 0.6 (0.1-0.6); MONO % 9.5 % (1.7-9.3); PLATELET COUNT 269 K/mm3 (130-400); RED BLOOD COUNT 3.51 M/mm3 (4.10-5.30); REDCELL DISTRIBUTION WIDTH-CV 15.1 % (11.5-14.5)
[2019-12-30 14:40] LABS: HEMATOCRIT 31.7 % (37.0-47.0)
[2019-12-30 14:46] LABS: ALBUMIN 3.7 gm/dL (3.5-5.0); BILIRUBIN,TOTAL 0.7 mg/dL (0.0-1.0); CALCIUM 8.3 mg/dL (8.4-10.2); CREATININE, serum 0.71 (0.52-1.25); TOTAL PROTEIN 6.9 gm/dL (6.4-8.2)
[2019-12-30 15:23] VITALS: BP 109/74; PULSE 68; TEMP 98.6
== END ==
LOC: EUO 13:30
PROVIDERS: Psychiatry & Neurology Neurology
DX: G35 Multiple sclerosis (principal); Z79.899 Other long term (current) drug therapy
CPT/HCPCS: J2323; J7050

== ENCOUNTER 2020-01-27 12:59 | Outpatient (CLI) | payer OTHER ==
[~2020-01-27] VITALS: Ht 160.1 cm; Wt 64.7 kg
[2020-01-27 15:01] LABS: BILIRUBIN,TOTAL 0.6 mg/dL (0.0-1.0); CALCIUM 8.6 mg/dL (8.4-10.2); CREATININE, serum 0.72 (0.52-1.25); POTASSIUM 4.2 mmol/L (3.4-5.0); TOTAL PROTEIN 7.4 gm/dL (6.4-8.2)
[2020-01-27 15:16] LABS: BASO % 0.4 % (0.0-2.0); EOS # 0.2 (0.0-0.7); EOS % 2.1 % (0-4.0); GRAN # 2.9 (1.4-6.5); HEMOGLOBIN 11.3 g/dl (12.5-16.0); LYMPH # 3.9 (1.2-3.4); LYMPH % 51.2 % (20.0-51.0); MEAN CELL VOLUME 92 fl (80.0-100.0); MEAN CORPUSCULAR HEMOGLOBIN 30 pg (27.0-31.0); MEAN CORPUSCULAR HGB CONC 32 g/dl (33.0-37.0); MEAN PLATELET VOLUME 9.6 fl (7.4-10.4); MONO # 0.6 (0.1-0.6); PLATELET COUNT 252 K/mm3 (130-400); RED BLOOD COUNT 3.81 M/mm3 (4.10-5.30); REDCELL DISTRIBUTION WIDTH-CV 14.8 % (11.5-14.5)
[2020-01-27 15:19] LABS: HEMATOCRIT 35.2 % (37.0-47.0)
[2020-01-27 16:48] VITALS: BP 100/57; PULSE 68; TEMP 98
--- NOTE | 2020-01-27 17:00 | NUR ---
Pt tolerated infusion well. IT was difficult to start pt's IV today, Laura BIANCHI attempted 3x and Eda was able to achieve access on her 3rd attempt. nanotechnologist was able to draw labs after several attempts. Pt was counselled by Eda BIANCHI to drink 1 gallon water/day on the 2 days preceding her next infusion, and to avoid caffeinated drinks on those days. Pt verbalized understanding.
== END 2020-01-27 17:15 | disposition home or self-care (01) ==
LOC: EUO 12:59
PROVIDERS: Psychiatry & Neurology Neurology
DX: G35 Multiple sclerosis (principal); Z79.899 Other long term (current) drug therapy
CPT/HCPCS: J2323

== ENCOUNTER 2020-02-24 13:14 | Outpatient (CLI) | payer OTHER ==
[~2020-02-24] VITALS: Ht 160 cm; Wt 67.4 kg
[2020-02-24 13:56] LABS: BASO % 0.4 % (0.0-2.0); EOS # 0.1 (0.0-0.7); EOS % 1.4 % (0-4.0); GRAN # 2.8 (1.4-6.5); GRAN % 38.7 % (42.2-75.2); HEMOGLOBIN 11.4 g/dl (12.5-16.0); LYMPH # 3.7 (1.2-3.4); LYMPH % 50.9 % (20.0-51.0); MEAN CELL VOLUME 91 fl (80.0-100.0); MEAN CORPUSCULAR HEMOGLOBIN 30 pg (27.0-31.0); MEAN CORPUSCULAR HGB CONC 33 g/dl (33.0-37.0); MEAN PLATELET VOLUME 9.7 fl (7.4-10.4); MONO # 0.6 (0.1-0.6); MONO % 8.3 % (1.7-9.3); PLATELET COUNT 271 K/mm3 (130-400); RED BLOOD COUNT 3.84 M/mm3 (4.10-5.30); REDCELL DISTRIBUTION WIDTH-CV 14.2 % (11.5-14.5)
[2020-02-24 14:10] LABS: ALBUMIN 4.2 gm/dL (3.5-5.0); BILIRUBIN,TOTAL 0.6 mg/dL (0.0-1.0); CALCIUM 8.7 mg/dL (8.4-10.2); CREATININE, serum 0.75 (0.52-1.25); POTASSIUM 3.4 mmol/L (3.4-5.0); TOTAL PROTEIN 7.5 gm/dL (6.4-8.2)
[2020-02-24 14:55] VITALS: BP 109/54; PULSE 82; TEMP 98.2
== END 2020-02-24 15:51 | disposition home or self-care (01) ==
LOC: EUO 13:14
PROVIDERS: Psychiatry & Neurology Neurology
DX: G35 Multiple sclerosis (principal); Z79.899 Other long term (current) drug therapy
CPT/HCPCS: J2323

== ENCOUNTER 2020-03-23 13:30 | Outpatient (CLI) | payer OTHER ==
[~2020-03-23] VITALS: Ht 160 cm; Wt 68.0 kg
[2020-03-23 13:59] LABS: BASO % 0.4 % (0.0-2.0); EOS # 0.1 (0.0-0.7); EOS % 1.8 % (0-4.0); GRAN # 2.6 (1.4-6.5); GRAN % 36.5 % (42.2-75.2); HEMOGLOBIN 11.1 g/dl (12.5-16.0); LYMPH # 3.7 (1.2-3.4); LYMPH % 51.8 % (20.0-51.0); MEAN CELL VOLUME 90 fl (80.0-100.0); MEAN CORPUSCULAR HEMOGLOBIN 30 pg (27.0-31.0); MEAN CORPUSCULAR HGB CONC 34 g/dl (33.0-37.0); MEAN PLATELET VOLUME 9.9 fl (7.4-10.4); MONO # 0.7 (0.1-0.6); MONO % 9.4 % (1.7-9.3); PLATELET COUNT 277 K/mm3 (130-400); RED BLOOD COUNT 3.67 M/mm3 (4.10-5.30); REDCELL DISTRIBUTION WIDTH-CV 14.2 % (11.5-14.5)
[2020-03-23 14:07] LABS: ALBUMIN 4.1 gm/dL (3.5-5.0); BILIRUBIN,TOTAL 0.6 mg/dL (0.0-1.0); CALCIUM 8.7 mg/dL (8.4-10.2); CREATININE, serum 0.75 (0.52-1.25); POTASSIUM 3.8 mmol/L (3.4-5.0); TOTAL PROTEIN 7.2 gm/dL (6.4-8.2)
[2020-03-23 14:23] VITALS: BP 101/65; PULSE 76; TEMP 98.4
== END 2020-03-23 15:45 | disposition home or self-care (01) ==
LOC: EUO 13:30
PROVIDERS: Psychiatry & Neurology Neurology
DX: G35 Multiple sclerosis (principal)
CPT/HCPCS: J2323

== ENCOUNTER 2020-04-20 13:22 | Outpatient (CLI) | payer OTHER ==
[~2020-04-20] VITALS: Ht 160 cm; Wt 66.3 kg
[2020-04-20 13:58] LABS: HEMOGLOBIN 11.3 g/dl (12.5-16.0); MEAN CELL VOLUME 90 fl (80.0-100.0); MEAN CORPUSCULAR HEMOGLOBIN 30 pg (27.0-31.0); MEAN CORPUSCULAR HGB CONC 33 g/dl (33.0-37.0); MEAN PLATELET VOLUME 9.4 fl (7.4-10.4); PLATELET COUNT 266 K/mm3 (130-400); REDCELL DISTRIBUTION WIDTH-CV 14.1 % (11.5-14.5)
[2020-04-20 14:04] LABS: HEMATOCRIT 34.2 % (37.0-47.0)
[2020-04-20 14:07] LABS: ALBUMIN 4.2 gm/dL (3.5-5.0); BILIRUBIN,TOTAL 0.5 mg/dL (0.0-1.0); CALCIUM 8.6 mg/dL (8.4-10.2); CREATININE, serum 0.89 (0.52-1.25); POTASSIUM 3.8 mmol/L (3.4-5.0); TOTAL PROTEIN 7.5 gm/dL (6.4-8.2)
[2020-04-20 14:19] LABS: ANISOCYTOSIS 2+; BAND 3 % (0-10); EOSINOPHIL 1 % (0-4); LYMPHOCYTE 47 % (20.0-51.0); NEUTROPHILS 42 % (42.0-75.2); PLATELET ESTIMATE NORMAL (NORMAL)
[2020-04-20 15:22] VITALS: BP 109/72; PULSE 97; TEMP 98.7
== END 2020-04-20 15:56 | disposition home or self-care (01) ==
LOC: EUO 13:22
PROVIDERS: Psychiatry & Neurology Neurology
DX: G35 Multiple sclerosis (principal)
CPT/HCPCS: J2323

== ENCOUNTER 2020-05-18 13:45 | Outpatient (CLI) | payer OTHER ==
[2020-05-18 14:12] LABS: BASO % 0.5 % (0.0-2.0); EOS # 0.1 (0.0-0.7); EOS % 1.3 % (0-4.0); GRAN # 2.5 (1.4-6.5); GRAN % 42.7 % (42.2-75.2); HEMOGLOBIN 10.2 g/dl (12.5-16.0); LYMPH # 2.6 (1.2-3.4); LYMPH % 43.4 % (20.0-51.0); MEAN CELL VOLUME 92 fl (80.0-100.0); MEAN CORPUSCULAR HEMOGLOBIN 30 pg (27.0-31.0); MEAN CORPUSCULAR HGB CONC 33 g/dl (33.0-37.0); MEAN PLATELET VOLUME 9.5 fl (7.4-10.4); MONO # 0.7 (0.1-0.6); MONO % 11.8 % (1.7-9.3); PLATELET COUNT 316 K/mm3 (130-400); RED BLOOD COUNT 3.37 M/mm3 (4.10-5.30)
[2020-05-18 14:17] LABS: BILIRUBIN,TOTAL 0.5 mg/dL (0.0-1.0); CALCIUM 8.7 mg/dL (8.4-10.2); CREATININE, serum 0.72 (0.52-1.25); POTASSIUM 3.9 mmol/L (3.4-5.0)
[2020-05-18 14:20] LABS: HEMATOCRIT 31.1 % (37.0-47.0)
[2020-05-18 15:30] VITALS: BP 128/75; PULSE 81; TEMP 97.6
[2020-05-18] MEDS ORDERED: NORCO 325 MG-51 TAB PO (15:38)
[2020-05-18] MEDS ORDERED: ASPIRIN E.C. 8181 MG PO (15:38)
== END 2020-05-18 16:27 | disposition home or self-care (01) ==
LOC: EUO 13:45
PROVIDERS: Psychiatry & Neurology Neurology
DX: G35 Multiple sclerosis (principal); Z79.899 Other long term (current) drug therapy
CPT/HCPCS: J2323

== ENCOUNTER → 2020-06-15 | Outpatient (CLI) | payer OTHER ==
[~2020-06-15] VITALS: Ht 160 cm; Wt 66.5 kg
[~2020-06-15] MED LIST changes: +ASPIRIN E.C. 8181 MG PO; +NORCO 325 MG-51 TAB PO
[2020-06-15 13:38] LABS: BASO % 0.4 % (0.0-2.0); EOS # 0.1 (0.0-0.7); EOS % 1.2 % (0-4.0); GRAN # 3.3 (1.4-6.5); GRAN % 44.6 % (42.2-75.2); HEMOGLOBIN 11.6 g/dl (12.5-16.0); LYMPH # 3.3 (1.2-3.4); LYMPH % 44.3 % (20.0-51.0); MEAN CELL VOLUME 90 fl (80.0-100.0); MEAN CORPUSCULAR HEMOGLOBIN 30 pg (27.0-31.0); MEAN CORPUSCULAR HGB CONC 33 g/dl (33.0-37.0); MEAN PLATELET VOLUME 9.6 fl (7.4-10.4); MONO # 0.7 (0.1-0.6); MONO % 9.2 % (1.7-9.3); PLATELET COUNT 312 K/mm3 (130-400); RED BLOOD COUNT 3.93 M/mm3 (4.10-5.30); REDCELL DISTRIBUTION WIDTH-CV 14.3 % (11.5-14.5)
[2020-06-15 13:44] LABS: HEMATOCRIT 35.4 % (37.0-47.0)
[2020-06-15 13:50] LABS: ALBUMIN 4.2 gm/dL (3.5-5.0); BILIRUBIN,TOTAL 0.5 mg/dL (0.0-1.0); CALCIUM 8.7 mg/dL (8.4-10.2); CREATININE, serum 0.8 (0.52-1.25); POTASSIUM 3.8 mmol/L (3.4-5.0); TOTAL PROTEIN 7.4 gm/dL (6.4-8.2)
[2020-06-15 14:33] VITALS: BP 114/77; PULSE 72; TEMP 98.6
== END ==
LOC: EUO 12:48
PROVIDERS: Psychiatry & Neurology Neurology
DX: G35 Multiple sclerosis (principal)
CPT/HCPCS: J2323

== ENCOUNTER 2020-07-13 13:08 | Outpatient (CLI) | payer OTHER ==
[~2020-07-13] VITALS: Ht 160 cm; Wt 75.7 kg
[2020-07-13 13:58] LABS: BASO % 0.4 % (0.0-2.0); EOS # 0.1 (0.0-0.7); GRAN # 3.3 (1.4-6.5); GRAN % 41.9 % (42.2-75.2); HEMOGLOBIN 10.7 g/dl (12.5-16.0); LYMPH # 3.6 (1.2-3.4); LYMPH % 46.5 % (20.0-51.0); MEAN CELL VOLUME 90 fl (80.0-100.0); MEAN CORPUSCULAR HEMOGLOBIN 29 pg (27.0-31.0); MEAN CORPUSCULAR HGB CONC 32 g/dl (33.0-37.0); MEAN PLATELET VOLUME 10.3 fl (7.4-10.4); MONO # 0.8 (0.1-0.6); MONO % 9.9 % (1.7-9.3); PLATELET COUNT 263 K/mm3 (130-400); RED BLOOD COUNT 3.69 M/mm3 (4.10-5.30); REDCELL DISTRIBUTION WIDTH-CV 14.2 % (11.5-14.5)
[2020-07-13 14:05] LABS: ALBUMIN 3.7 gm/dL (3.5-5.0); BILIRUBIN,TOTAL 0.5 mg/dL (0.0-1.0); CALCIUM 8.3 mg/dL (8.4-10.2); CREATININE, serum 0.76 (0.52-1.25); POTASSIUM 3.8 mmol/L (3.4-5.0); TOTAL PROTEIN 6.8 gm/dL (6.4-8.2)
[2020-07-13 14:11] VITALS: BP 110/70; PULSE 73; TEMP 98.5
[2020-07-13 14:11] LABS: HEMATOCRIT 33.1 % (37.0-47.0)
[2020-07-13 15:15] VITALS: BP 107/66; PULSE 77
== END 2020-07-13 16:48 | disposition home or self-care (01) ==
LOC: EUO 13:08
PROVIDERS: Psychiatry & Neurology Neurology
DX: G35 Multiple sclerosis (principal)
CPT/HCPCS: J2323

== ENCOUNTER 2020-08-10 13:01 | Outpatient (CLI) | payer OTHER ==
[~2020-08-10] VITALS: Ht 160 cm; Wt 67.3 kg
[~2020-08-10 13:01] MED LIST changes: +CYMBALTA 60MG60 MG PO
[2020-08-10 13:44] LABS: BASO % 0.2 % (0.0-2.0); EOS # 0.1 (0.0-0.7); EOS % 0.8 % (0-4.0); GRAN # 4.7 (1.4-6.5); GRAN % 51.5 % (42.2-75.2); HEMATOCRIT 35.7 % (37.0-47.0); HEMOGLOBIN 11.5 g/dl (12.5-16.0); LYMPH # 3.7 (1.2-3.4); LYMPH % 40.2 % (20.0-51.0); MEAN CELL VOLUME 90 fl (80.0-100.0); MEAN CORPUSCULAR HEMOGLOBIN 29 pg (27.0-31.0); MEAN CORPUSCULAR HGB CONC 32 g/dl (33.0-37.0); MEAN PLATELET VOLUME 9.6 fl (7.4-10.4); MONO # 0.6 (0.1-0.6); MONO % 7.1 % (1.7-9.3); PLATELET COUNT 265 K/mm3 (130-400); RED BLOOD COUNT 3.99 M/mm3 (4.10-5.30); REDCELL DISTRIBUTION WIDTH-CV 14.5 % (11.5-14.5)
[2020-08-10 13:55] LABS: ALBUMIN 4.1 gm/dL (3.5-5.0); BILIRUBIN,TOTAL 0.9 mg/dL (0.0-1.0); CALCIUM 8.7 mg/dL (8.4-10.2); CREATININE, serum 0.72 (0.52-1.25); POTASSIUM 4.7 mmol/L (3.4-5.0); TOTAL PROTEIN 7.3 gm/dL (6.4-8.2)
[2020-08-10 14:07] VITALS: BP 113/67; PULSE 79; TEMP 97.5
== END 2020-08-10 15:50 | disposition home or self-care (01) ==
LOC: EUO 13:01
PROVIDERS: Psychiatry & Neurology Neurology
DX: G35 Multiple sclerosis (principal); Z79.899 Other long term (current) drug therapy
CPT/HCPCS: J2323

== ENCOUNTER 2020-09-07 13:06 | Outpatient (CLI) | payer OTHER ==
[~2020-09-07] VITALS: Ht 160 cm; Wt 67.8 kg
[2020-09-07 13:44] LABS: BASO % 0.4 % (0.0-2.0); EOS # 0.1 (0.0-0.7); EOS % 1.2 % (0-4.0); GRAN # 3.3 (1.4-6.5); GRAN % 43.3 % (42.2-75.2); LYMPH # 3.5 (1.2-3.4); LYMPH % 45.9 % (20.0-51.0); MEAN CELL VOLUME 91 fl (80.0-100.0); MEAN CORPUSCULAR HEMOGLOBIN 29 pg (27.0-31.0); MEAN CORPUSCULAR HGB CONC 32 g/dl (33.0-37.0); MEAN PLATELET VOLUME 9.7 fl (7.4-10.4); MONO # 0.7 (0.1-0.6); MONO % 8.9 % (1.7-9.3); PLATELET COUNT 247 K/mm3 (130-400); RED BLOOD COUNT 3.79 M/mm3 (4.10-5.30); REDCELL DISTRIBUTION WIDTH-CV 14.7 % (11.5-14.5)
[2020-09-07 13:45] LABS: HEMATOCRIT 34.3 % (37.0-47.0)
[2020-09-07 13:55] LABS: ALBUMIN 3.7 gm/dL (3.5-5.0); BILIRUBIN,TOTAL 0.3 mg/dL (0.0-1.0); CALCIUM 8.6 mg/dL (8.4-10.2); CREATININE, serum 0.76 (0.52-1.25); POTASSIUM 3.9 mmol/L (3.4-5.0); TOTAL PROTEIN 6.9 gm/dL (6.4-8.2)
[2020-09-07 14:23] VITALS: BP 115/74; PULSE 56; TEMP 98.4
== END 2020-09-07 16:16 | disposition home or self-care (01) ==
LOC: EUO
PROVIDERS: Psychiatry & Neurology Neurology
DX: G35 Multiple sclerosis (principal); Z79.899 Other long term (current) drug therapy
CPT/HCPCS: J2323

== ENCOUNTER 2020-10-05 13:33 | Outpatient (CLI) | payer OTHER ==
[~2020-10-05] VITALS: Ht 160 cm; Wt 68.4 kg
[2020-10-05 13:51] LABS: MEAN CELL VOLUME 89 fl (80.0-100.0); MEAN CORPUSCULAR HEMOGLOBIN 29 pg (27.0-31.0); MEAN CORPUSCULAR HGB CONC 33 g/dl (33.0-37.0); MEAN PLATELET VOLUME 9.5 fl (7.4-10.4); PLATELET COUNT 249 K/mm3 (130-400); RED BLOOD COUNT 3.76 M/mm3 (4.10-5.30); REDCELL DISTRIBUTION WIDTH-CV 14.5 % (11.5-14.5)
[2020-10-05 13:52] LABS: HEMATOCRIT 33.6 % (37.0-47.0)
[2020-10-05 14:03] LABS: ALBUMIN 3.9 gm/dL (3.5-5.0); BILIRUBIN,TOTAL 0.4 mg/dL (0.0-1.0); CREATININE, serum 0.71 (0.52-1.25); POTASSIUM 4.1 mmol/L (3.4-5.0); TOTAL PROTEIN 7.2 gm/dL (6.4-8.2)
[2020-10-05 15:36] VITALS: BP 108/73; PULSE 75; TEMP 97.8
== END 2020-10-05 15:40 | disposition home or self-care (01) ==
LOC: EUO 13:33
PROVIDERS: Psychiatry & Neurology Neurology
DX: G35 Multiple sclerosis (principal); Z79.899 Other long term (current) drug therapy
CPT/HCPCS: J2323

== ENCOUNTER 2020-11-02 13:24 | Outpatient (CLI) | payer OTHER ==
[~2020-11-02] VITALS: Ht 160 cm; Wt 67.0 kg
[2020-11-02 14:26] LABS: BASO % 0.4 % (0.0-2.0); EOS # 0.1 (0.0-0.7); EOS % 1.1 % (0-4.0); GRAN # 3.1 (1.4-6.5); GRAN % 42.4 % (42.2-75.2); HEMOGLOBIN 11.6 g/dl (12.5-16.0); LYMPH # 3.6 (1.2-3.4); LYMPH % 48.4 % (20.0-51.0); MEAN CELL VOLUME 89 fl (80.0-100.0); MEAN CORPUSCULAR HEMOGLOBIN 29 pg (27.0-31.0); MEAN CORPUSCULAR HGB CONC 33 g/dl (33.0-37.0); MEAN PLATELET VOLUME 9.6 fl (7.4-10.4); MONO # 0.5 (0.1-0.6); MONO % 7.3 % (1.7-9.3); PLATELET COUNT 245 K/mm3 (130-400); REDCELL DISTRIBUTION WIDTH-CV 14.3 % (11.5-14.5)
[2020-11-02 14:28] LABS: HEMATOCRIT 35.6 % (37.0-47.0)
[2020-11-02 15:02] LABS: ALBUMIN 4.1 gm/dL (3.5-5.0); BILIRUBIN,TOTAL 0.5 mg/dL (0.0-1.0); CALCIUM 8.7 mg/dL (8.4-10.2); CREATININE, serum 0.72 (0.52-1.25); POTASSIUM 3.8 mmol/L (3.4-5.0); TOTAL PROTEIN 7.4 gm/dL (6.4-8.2)
[2020-11-02 15:04] VITALS: BP 111/70; PULSE 88; TEMP 98.4
== END 2020-11-02 17:00 ==
LOC: EUO 13:24
PROVIDERS: Psychiatry & Neurology Neurology
DX: G35 Multiple sclerosis (principal)
CPT/HCPCS: J2323

== ENCOUNTER 2020-11-30 13:14 | Outpatient (CLI) | payer OTHER ==
[~2020-11-30] VITALS: Ht 160 cm; Wt 68.2 kg
[2020-11-30 13:50] LABS: BASO % 0.3 % (0.0-2.0); EOS # 0.1 (0.0-0.7); EOS % 1.2 % (0-4.0); GRAN % 43.1 % (42.2-75.2); HEMOGLOBIN 11.1 g/dl (12.5-16.0); LYMPH # 4.2 (1.2-3.4); LYMPH % 45.1 % (20.0-51.0); MEAN CELL VOLUME 89 fl (80.0-100.0); MEAN CORPUSCULAR HEMOGLOBIN 30 pg (27.0-31.0); MEAN CORPUSCULAR HGB CONC 34 g/dl (33.0-37.0); MEAN PLATELET VOLUME 9.8 fl (7.4-10.4); MONO # 0.9 (0.1-0.6); MONO % 10.1 % (1.7-9.3); PLATELET COUNT 266 K/mm3 (130-400); RED BLOOD COUNT 3.69 M/mm3 (4.10-5.30); REDCELL DISTRIBUTION WIDTH-CV 13.8 % (11.5-14.5)
[2020-11-30 13:53] LABS: HEMATOCRIT 32.8 % (37.0-47.0)
[2020-11-30 14:02] LABS: ALBUMIN 3.9 gm/dL (3.5-5.0); BILIRUBIN,TOTAL 0.6 mg/dL (0.0-1.0); CALCIUM 8.9 mg/dL (8.4-10.2); CREATININE, serum 0.76 (0.52-1.25); POTASSIUM 3.8 mmol/L (3.4-5.0); TOTAL PROTEIN 7.2 gm/dL (6.4-8.2)
[2020-11-30 15:00] VITALS: BP 104/67; PULSE 76; TEMP 98.2
== END 2020-11-30 16:09 | disposition home or self-care (01) ==
LOC: EUO 13:14
PROVIDERS: Psychiatry & Neurology Neurology
DX: G35 Multiple sclerosis (principal); Z79.899 Other long term (current) drug therapy
CPT/HCPCS: J2323

== ENCOUNTER 2020-12-30 13:11 | Outpatient (CLI) | payer OTHER ==
[~2020-12-30] VITALS: Ht 160 cm; Wt 66.8 kg
[2020-12-30 13:36] LABS: HEMATOCRIT 34.4 % (37.0-47.0); HEMOGLOBIN 11.4 g/dl (12.5-16.0); MEAN CELL VOLUME 88 fl (80.0-100.0); MEAN CORPUSCULAR HEMOGLOBIN 29 pg (27.0-31.0); MEAN CORPUSCULAR HGB CONC 33 g/dl (33.0-37.0); MEAN PLATELET VOLUME 9.7 fl (7.4-10.4); PLATELET COUNT 251 K/mm3 (130-400); RED BLOOD COUNT 3.89 M/mm3 (4.10-5.30); REDCELL DISTRIBUTION WIDTH-CV 14.1 % (11.5-14.5)
[2020-12-30 13:49] LABS: ALBUMIN 3.9 gm/dL (3.5-5.0); BILIRUBIN,TOTAL 0.6 mg/dL (0.0-1.0); CALCIUM 8.8 mg/dL (8.4-10.2); CREATININE, serum 0.7 (0.52-1.25); POTASSIUM 3.9 mmol/L (3.4-5.0); TOTAL PROTEIN 7.3 gm/dL (6.4-8.2)
[2020-12-30 15:04] VITALS: BP 99/71; PULSE 89; TEMP 98.1
--- NOTE | 2020-12-30 16:00 | NUR ---
INT DC'd with catheter intact. Pt ambulates out from dept with cane.
== END 2020-12-30 17:02 | disposition home or self-care (01) ==
LOC: EUO 13:11
PROVIDERS: Psychiatry & Neurology Neurology
DX: G35 Multiple sclerosis (principal); Z79.899 Other long term (current) drug therapy
CPT/HCPCS: J2323

== ENCOUNTER 2021-02-01 13:03 | Outpatient (CLI) | payer OTHER ==
[~2021-02-01] VITALS: Ht 160 cm; Wt 66.9 kg
[2021-02-01 13:48] VITALS: BP 98/62; PULSE 80; TEMP 98.4
[2021-02-01 14:01] LABS: HEMOGLOBIN 11.2 g/dl (12.5-16.0); MEAN CELL VOLUME 90 fl (80.0-100.0); MEAN CORPUSCULAR HEMOGLOBIN 29 pg (27.0-31.0); MEAN CORPUSCULAR HGB CONC 33 g/dl (33.0-37.0); MEAN PLATELET VOLUME 9.9 fl (7.4-10.4); PLATELET COUNT 323 K/mm3 (130-400); RED BLOOD COUNT 3.84 M/mm3 (4.10-5.30); REDCELL DISTRIBUTION WIDTH-CV 14.3 % (11.5-14.5)
[2021-02-01 14:07] LABS: ALBUMIN 3.9 gm/dL (3.5-5.0); BILIRUBIN,TOTAL 0.6 mg/dL (0.0-1.0); CALCIUM 8.6 mg/dL (8.4-10.2); CREATININE, serum 0.77 (0.52-1.25); POTASSIUM 3.7 mmol/L (3.4-5.0); TOTAL PROTEIN 7.4 gm/dL (6.4-8.2)
[2021-02-01 14:25] LABS: HEMATOCRIT 34.4 % (37.0-47.0)
[2021-02-01 14:29] LABS: BAND 2 % (0-10); LYMPHOCYTE 67 % (20.0-51.0); NEUTROPHILS 26 % (42.0-75.2); PLATELET ESTIMATE NORMAL (NORMAL)
== END 2021-02-01 16:45 | disposition home or self-care (01) ==
LOC: EUO 13:03
PROVIDERS: Psychiatry & Neurology Neurology
DX: G35 Multiple sclerosis (principal)
CPT/HCPCS: J2323

== ENCOUNTER 2021-03-01 13:18 | Outpatient (CLI) | payer OTHER ==
[2021-03-01 13:49] LABS: BASO % 0.4 % (0.0-2.0); EOS # 0.2 (0.0-0.7); EOS % 2.4 % (0-4.0); GRAN # 3.2 (1.4-6.5); GRAN % 40.5 % (42.2-75.2); HEMATOCRIT 34.4 % (37.0-47.0); HEMOGLOBIN 11.5 g/dl (12.5-16.0); LYMPH # 3.8 (1.2-3.4); LYMPH % 48.1 % (20.0-51.0); MEAN CELL VOLUME 86 fl (80.0-100.0); MEAN CORPUSCULAR HEMOGLOBIN 29 pg (27.0-31.0); MEAN CORPUSCULAR HGB CONC 33 g/dl (33.0-37.0); MEAN PLATELET VOLUME 9.7 fl (7.4-10.4); MONO # 0.7 (0.1-0.6); MONO % 8.3 % (1.7-9.3); PLATELET COUNT 307 K/mm3 (130-400); RED BLOOD COUNT 3.98 M/mm3 (4.10-5.30); REDCELL DISTRIBUTION WIDTH-CV 13.8 % (11.5-14.5)
[2021-03-01 14:08] LABS: ALBUMIN 4.2 gm/dL (3.5-5.0); BILIRUBIN,TOTAL 0.5 mg/dL (0.0-1.0); CALCIUM 8.7 mg/dL (8.4-10.2); CREATININE, serum 0.87 (0.52-1.25); POTASSIUM 3.7 mmol/L (3.4-5.0); TOTAL PROTEIN 7.6 gm/dL (6.4-8.2)
== END 2021-03-02 16:00 | disposition home or self-care (01) ==
LOC: EUO 13:18
PROVIDERS: Psychiatry & Neurology Neurology
DX: G35 Multiple sclerosis (principal)
CPT/HCPCS: J2323

== ENCOUNTER → 2021-04-19 | Outpatient (CLI) | payer OTHER | LOC: COL.RAD 12:43 | DX: G35 Multiple sclerosis (principal); M50.30 Other cervical disc degeneration, unspecified cervical region; M48.02 Spinal stenosis, cervical region; M89.38 Hypertrophy of bone, other site | CPT/HCPCS: A9585 ==

== ENCOUNTER 2021-04-26 10:51 | Outpatient (CLI) | payer OTHER ==
[~2021-04-26] VITALS: Ht 160 cm; Wt 68.0 kg
[2021-04-26 11:39] LABS: BASO % 0.4 % (0.0-2.0); EOS # 0.1 K/mm3 (0.0-0.7); EOS % 1.7 % (0-4.0); GRAN # 3.4 K/mm3 (1.4-6.5); HEMATOCRIT 35.6 % (37.0-47.0); HEMOGLOBIN 11.4 g/dl (12.5-16.0); LYMPH # 2.9 K/mm3 (1.2-3.4); MEAN CELL VOLUME 92 fl (80.0-100.0); MEAN CORPUSCULAR HEMOGLOBIN 29 pg (27.0-31.0); MEAN CORPUSCULAR HGB CONC 32 g/dl (33.0-37.0); MONO # 0.6 K/mm3 (0.1-0.6); MONO % 8.6 % (1.7-9.3); PLATELET COUNT 249 K/mm3 (130-400); RED BLOOD COUNT 3.88 M/mm3 (4.10-5.30); REDCELL DISTRIBUTION WIDTH-CV 14.3 % (11.5-14.5)
[2021-04-26 12:13] LABS: ALBUMIN 3.6 gm/dL (3.5-5.0); BILIRUBIN,TOTAL 0.4 mg/dL (0.2-1.2); CALCIUM 9.1 mg/dL (8.4-10.2); CREATININE, serum 0.9 mg/dL (0.57-1.11); TOTAL PROTEIN 7.7 gm/dL (6.2-8.1)
[2021-04-26 12:18] LABS: POTASSIUM 4.6 mmol/L (3.5-4.5)
[2021-04-26 12:34] VITALS: BP 113/69; PULSE 70; TEMP 98.2
== END 2021-04-26 13:29 ==
LOC: EUO 10:51
PROVIDERS: Psychiatry & Neurology Neurology
DX: G35 Multiple sclerosis (principal)
CPT/HCPCS: J2323

== ENCOUNTER 2021-05-24 12:48 | Outpatient (CLI) | payer OTHER ==
[~2021-05-24] VITALS: Ht 160 cm; Wt 66.9 kg
[2021-05-24 13:29] LABS: BASO % 0.3 % (0.0-2.0); EOS # 0.1 K/mm3 (0.0-0.7); EOS % 0.9 % (0-4.0); GRAN # 3.4 K/mm3 (1.4-6.5); GRAN % 43.9 % (42.2-75.2); HEMOGLOBIN 12.1 g/dl (12.5-16.0); LYMPH # 3.3 K/mm3 (1.2-3.4); LYMPH % 43.7 % (20.0-51.0); MEAN CELL VOLUME 87 fl (80.0-100.0); MEAN CORPUSCULAR HEMOGLOBIN 29 pg (27.0-31.0); MEAN CORPUSCULAR HGB CONC 34 g/dl (33.0-37.0); MEAN PLATELET VOLUME 9.8 fl (7.4-10.4); MONO # 0.8 K/mm3 (0.1-0.6); MONO % 10.9 % (1.7-9.3); PLATELET COUNT 297 K/mm3 (130-400); RED BLOOD COUNT 4.15 M/mm3 (4.10-5.30); REDCELL DISTRIBUTION WIDTH-CV 14.1 % (11.5-14.5)
[2021-05-24 13:34] LABS: HEMATOCRIT 36.1 % (37.0-47.0)
[2021-05-24 13:56] LABS: ALBUMIN 3.9 gm/dL (3.5-5.0); BILIRUBIN,TOTAL 0.5 mg/dL (0.2-1.2); CALCIUM 9.7 mg/dL (8.4-10.2); CREATININE, serum 0.84 mg/dL (0.57-1.11); TOTAL PROTEIN 7.8 gm/dL (6.2-8.1)
[2021-05-24 15:37] VITALS: BP 127/82; PULSE 72; TEMP 98.6
== END 2021-05-24 15:38 | disposition home or self-care (01) ==
LOC: EUO 12:48
PROVIDERS: Psychiatry & Neurology Neurology
DX: G20 Parkinson's disease (principal)
CPT/HCPCS: J2323

== ENCOUNTER 2021-06-21 13:22 | Outpatient (CLI) | payer OTHER ==
[~2021-06-21] VITALS: Ht 160 cm; Wt 67.1 kg
[2021-06-21 14:08] LABS: MEAN CELL VOLUME 86 fl (80.0-100.0); MEAN CORPUSCULAR HEMOGLOBIN 29 pg (27-31); MEAN CORPUSCULAR HGB CONC 33 g/dl (33.0-37.0); MEAN PLATELET VOLUME 9.4 fl (7.4-10.4); PLATELET COUNT 284 K/mm3 (130-400); RED BLOOD COUNT 4.19 M/mm3 (4.10-5.30); REDCELL DISTRIBUTION WIDTH-CV 14.3 % (11.5-14.5)
[2021-06-21 14:29] LABS: ALBUMIN 3.8 gm/dL (3.5-5.0); BILIRUBIN,TOTAL 0.6 mg/dL (0.2-1.2); CALCIUM 8.5 mg/dL (8.4-10.2); CREATININE, serum 0.82 mg/dL (0.57-1.11); POTASSIUM 3.7 mmol/L (3.5-4.5); TOTAL PROTEIN 7.2 gm/dL (6.2-8.1)
[2021-06-21 14:42] LABS: EOSINOPHIL 1 % (0-4); LYMPHOCYTE 53 % (20.0-51.0); NEUTROPHILS 37 % (42.0-75.2); PLATELET ESTIMATE NORMAL (NORMAL)
[2021-06-21 15:17] VITALS: BP 113/63; PULSE 84; TEMP 98
== END 2021-06-21 16:05 ==
LOC: EUO 13:22
PROVIDERS: Psychiatry & Neurology Neurology
DX: G35 Multiple sclerosis (principal)
CPT/HCPCS: J2323; J7050

== ENCOUNTER 2021-07-19 11:07 | Outpatient (CLI) | payer OTHER ==
[~2021-07-19] VITALS: Ht 160 cm; Wt 67.3 kg
[2021-07-19 11:29] LABS: BASO % 0.4 % (0.0-2.0); EOS # 0.2 K/mm3 (0.0-0.7); EOS % 2.1 % (0.0-4.0); GRAN # 3.1 K/mm3 (1.4-6.5); GRAN % 39.3 % (42.2-75.2); LYMPH # 3.7 K/mm3 (1.2-3.4); LYMPH % 47.7 % (20.0-51.0); MEAN CELL VOLUME 88 fl (80.0-100.0); MEAN CORPUSCULAR HEMOGLOBIN 29 pg (27-31); MEAN CORPUSCULAR HGB CONC 33 g/dl (33.0-37.0); MEAN PLATELET VOLUME 9.7 fl (7.4-10.4); MONO # 0.8 K/mm3 (0.1-0.6); MONO % 10.2 % (1.7-9.3); PLATELET COUNT 288 K/mm3 (130-400); RED BLOOD COUNT 4.16 M/mm3 (4.10-5.30); REDCELL DISTRIBUTION WIDTH-CV 14.6 % (11.5-14.5)
[2021-07-19 11:30] LABS: HEMATOCRIT 36.5 % (37.0-47.0)
[2021-07-19 11:53] LABS: ALBUMIN 3.9 gm/dL (3.5-5.0); BILIRUBIN,TOTAL 0.5 mg/dL (0.2-1.2); CALCIUM 8.9 mg/dL (8.4-10.2); CREATININE, serum 0.86 mg/dL (0.57-1.11); POTASSIUM 4.6 mmol/L (3.5-4.5); TOTAL PROTEIN 7.5 gm/dL (6.2-8.1)
[2021-07-19 12:30] VITALS: BP 116/68; PULSE 95; TEMP 98
== END 2021-07-19 13:40 | disposition home or self-care (01) ==
LOC: EUO 11:07
PROVIDERS: Psychiatry & Neurology Neurology
DX: G35 Multiple sclerosis (principal)
CPT/HCPCS: J2323

== ENCOUNTER 2021-08-23 12:44 | Outpatient (CLI) | payer OTHER ==
[~2021-08-23] VITALS: Ht 160 cm; Wt 67.0 kg
[2021-08-23 13:15] VITALS: BP 100/66; PULSE 82; TEMP 98.5
[2021-08-23 13:25] LABS: BASO % 0.3 % (0.0-2.0); EOS # 0.1 K/mm3 (0.0-0.7); EOS % 1.5 % (0.0-4.0); GRAN # 2.5 K/mm3 (1.4-6.5); GRAN % 38.2 % (42.2-75.2); HEMOGLOBIN 11.7 g/dl (12.5-16.0); LYMPH # 3.2 K/mm3 (1.2-3.4); LYMPH % 48.9 % (20.0-51.0); MEAN CELL VOLUME 89 fl (80.0-100.0); MEAN CORPUSCULAR HEMOGLOBIN 30 pg (27-31); MEAN CORPUSCULAR HGB CONC 33 g/dl (33.0-37.0); MEAN PLATELET VOLUME 9.6 fl (7.4-10.4); MONO # 0.7 K/mm3 (0.1-0.6); MONO % 10.8 % (1.7-9.3); PLATELET COUNT 320 K/mm3 (130-400); RED BLOOD COUNT 3.96 M/mm3 (4.10-5.30)
[2021-08-23 13:26] LABS: HEMATOCRIT 35.4 % (37.0-47.0)
[2021-08-23 13:38] LABS: ALBUMIN 3.9 gm/dL (3.5-5.0); BILIRUBIN,TOTAL 0.5 mg/dL (0.2-1.2); CALCIUM 8.7 mg/dL (8.4-10.2); CREATININE, serum 0.8 mg/dL (0.57-1.11)
== END 2021-08-23 15:04 ==
LOC: EUO 12:44
PROVIDERS: Psychiatry & Neurology Neurology
DX: G35 Multiple sclerosis (principal); Z79.899 Other long term (current) drug therapy
CPT/HCPCS: J2323

== ENCOUNTER 2021-09-20 09:54 | Outpatient (CLI) | payer OTHER ==
[2021-09-20 13:37] LABS: BASO % 0.3 % (0.0-2.0); EOS # 0.1 K/mm3 (0.0-0.7); EOS % 1.1 % (0.0-4.0); GRAN # 2.4 K/mm3 (1.4-6.5); GRAN % 39.4 % (42.2-75.2); HEMOGLOBIN 11.7 g/dl (12.5-16.0); LYMPH % 49.2 % (20.0-51.0); MEAN CELL VOLUME 87 fl (80.0-100.0); MEAN CORPUSCULAR HEMOGLOBIN 29 pg (27-31); MEAN CORPUSCULAR HGB CONC 34 g/dl (33.0-37.0); MEAN PLATELET VOLUME 9.4 fl (7.4-10.4); MONO # 0.6 K/mm3 (0.1-0.6); MONO % 9.8 % (1.7-9.3); PLATELET COUNT 294 K/mm3 (130-400); RED BLOOD COUNT 3.98 M/mm3 (4.10-5.30); REDCELL DISTRIBUTION WIDTH-CV 14.6 % (11.5-14.5)
[2021-09-20 13:43] LABS: HEMATOCRIT 34.6 % (37.0-47.0)
[2021-09-20 13:55] LABS: ALBUMIN 3.8 gm/dL (3.5-5.0); BILIRUBIN,TOTAL 0.4 mg/dL (0.2-1.2); CALCIUM 8.5 mg/dL (8.4-10.2); CREATININE, serum 0.83 mg/dL (0.57-1.11); POTASSIUM 3.9 mmol/L (3.5-4.5); TOTAL PROTEIN 7.5 gm/dL (6.2-8.1)
[2021-09-20 14:35] VITALS: BP 116/68; PULSE 78; TEMP 98
--- NOTE | 2021-09-20 15:20 | NUR ---
INT DC'd with catheter intact. Pt ambulates out from dept with cane, steady gait.
== END 2021-09-20 15:20 | disposition home or self-care (01) ==
LOC: EUO 09:54
PROVIDERS: Psychiatry & Neurology Neurology
DX: G35 Multiple sclerosis (principal)
CPT/HCPCS: J2323

== ENCOUNTER 2021-10-18 13:05 | Outpatient (CLI) | payer OTHER ==
[~2021-10-18] VITALS: Ht 160 cm; Wt 68.2 kg
[2021-10-18 14:04] LABS: BASO % 0.6 % (0.0-2.0); EOS # 0.2 K/mm3 (0.0-0.7); EOS % 2.8 % (0.0-4.0); GRAN # 2.1 K/mm3 (1.4-6.5); GRAN % 32.7 % (42.2-75.2); HEMOGLOBIN 11.6 g/dl (12.5-16.0); LYMPH # 3.5 K/mm3 (1.2-3.4); LYMPH % 53.6 % (20.0-51.0); MEAN CELL VOLUME 89 fl (80.0-100.0); MEAN CORPUSCULAR HEMOGLOBIN 29 pg (27-31); MEAN CORPUSCULAR HGB CONC 33 g/dl (33.0-37.0); MEAN PLATELET VOLUME 9.5 fl (7.4-10.4); MONO # 0.7 K/mm3 (0.1-0.6); PLATELET COUNT 306 K/mm3 (130-400); RED BLOOD COUNT 4.01 M/mm3 (4.10-5.30); REDCELL DISTRIBUTION WIDTH-CV 14.4 % (11.5-14.5)
[2021-10-18 14:09] LABS: HEMATOCRIT 35.5 % (37.0-47.0)
[2021-10-18 14:31] LABS: ALBUMIN 3.5 gm/dL (3.5-5.0); BILIRUBIN,TOTAL 0.3 mg/dL (0.2-1.2); CALCIUM 8.3 mg/dL (8.4-10.2); CREATININE, serum 0.81 mg/dL (0.57-1.11); POTASSIUM 3.9 mmol/L (3.5-4.5); TOTAL PROTEIN 6.8 gm/dL (6.2-8.1)
[2021-10-18 15:30] VITALS: BP 128/78; PULSE 67; TEMP 97.6
== END 2021-10-18 16:02 ==
LOC: EUO 13:05
PROVIDERS: Psychiatry & Neurology Neurology
DX: G35 Multiple sclerosis (principal)
CPT/HCPCS: J2323

== ENCOUNTER 2021-11-15 10:58 | Outpatient (CLI) | payer OTHER ==
[~2021-11-15] VITALS: Ht 160 cm; Wt 68.8 kg
[2021-11-15 11:36] LABS: BASO % 0.4 % (0.0-2.0); EOS # 0.1 K/mm3 (0.0-0.7); EOS % 1.4 % (0.0-4.0); GRAN % 41.5 % (42.2-75.2); HEMOGLOBIN 11.7 g/dl (12.5-16.0); LYMPH # 3.3 K/mm3 (1.2-3.4); LYMPH % 46.3 % (20.0-51.0); MEAN CELL VOLUME 90 fl (80.0-100.0); MEAN CORPUSCULAR HEMOGLOBIN 29 pg (27-31); MEAN CORPUSCULAR HGB CONC 32 g/dl (33.0-37.0); MEAN PLATELET VOLUME 9.9 fl (7.4-10.4); MONO # 0.7 K/mm3 (0.1-0.6); MONO % 10.1 % (1.7-9.3); PLATELET COUNT 303 K/mm3 (130-400); RED BLOOD COUNT 4.07 M/mm3 (4.10-5.30); REDCELL DISTRIBUTION WIDTH-CV 14.4 % (11.5-14.5)
[2021-11-15 11:38] LABS: HEMATOCRIT 36.7 % (37.0-47.0)
[2021-11-15 11:52] LABS: ALBUMIN 3.7 gm/dL (3.5-5.0); BILIRUBIN,TOTAL 0.5 mg/dL (0.2-1.2); CREATININE, serum 0.87 mg/dL (0.57-1.11); POTASSIUM 4.7 mmol/L (3.5-4.5); TOTAL PROTEIN 7.4 gm/dL (6.2-8.1)
[2021-11-15 12:06] VITALS: BP 108/73; PULSE 69; TEMP 97.6
== END 2021-11-15 13:36 ==
LOC: EUO 10:58
PROVIDERS: Psychiatry & Neurology Neurology
DX: G35 Multiple sclerosis (principal)
CPT/HCPCS: J2323

== ENCOUNTER 2021-12-13 13:20 | Outpatient (CLI) | payer OTHER ==
[~2021-12-13] VITALS: Ht 160 cm; Wt 69.5 kg
[2021-12-13 13:55] LABS: HEMOGLOBIN 11.6 g/dl (12.5-16.0); MEAN CELL VOLUME 87 fl (80.0-100.0); MEAN CORPUSCULAR HEMOGLOBIN 29 pg (27-31); MEAN CORPUSCULAR HGB CONC 34 g/dl (33.0-37.0); MEAN PLATELET VOLUME 9.7 fl (7.4-10.4); PLATELET COUNT 310 K/mm3 (130-400); RED BLOOD COUNT 3.98 M/mm3 (4.10-5.30); REDCELL DISTRIBUTION WIDTH-CV 14.6 % (11.5-14.5)
[2021-12-13 14:02] LABS: HEMATOCRIT 34.5 % (37.0-47.0)
[2021-12-13 14:15] LABS: ALBUMIN 3.7 gm/dL (3.5-5.0); BILIRUBIN,TOTAL 0.5 mg/dL (0.2-1.2); CALCIUM 8.8 mg/dL (8.4-10.2); CREATININE, serum 0.81 mg/dL (0.57-1.11); POTASSIUM 4.3 mmol/L (3.5-4.5); TOTAL PROTEIN 7.4 gm/dL (6.2-8.1)
[2021-12-13 14:41] LABS: BAND 2 % (0-10); EOSINOPHIL 1 % (0-4); NEUTROPHILS 25 % (42.0-75.2); NUCLEATED RED BLOOD CELL 3 (0-6)
[2021-12-13 14:42] LABS: PLATELET ESTIMATE NORMAL (NORMAL); POIKILOCYTOSIS 2+; STOMATOCYTE 2+
[2021-12-13 14:43] LABS: LYMPHOCYTE 59 % (20.0-51.0)
[2021-12-13 15:09] VITALS: BP 107/64; PULSE 71; TEMP 97.9
[2021-12-13] MEDS ORDERED: LIORESAL 1010 MG/TAB PO (15:34)
== END 2021-12-13 16:39 | disposition home or self-care (01) ==
LOC: EUO 13:20
PROVIDERS: Psychiatry & Neurology Neurology
DX: G35 Multiple sclerosis (principal)
CPT/HCPCS: J2323

== ENCOUNTER 2022-01-10 12:59 | Outpatient (CLI) | payer OTHER ==
[~2022-01-10] VITALS: Ht 160 cm; Wt 68.0 kg
[~2022-01-10 12:59] MED LIST changes: +LIORESAL 1010 MG/TAB PO
[2022-01-10 13:35] LABS: HEMOGLOBIN 11.5 g/dl (12.5-16.0); MEAN CELL VOLUME 88 fl (80.0-100.0); MEAN CORPUSCULAR HEMOGLOBIN 29 pg (27-31); MEAN CORPUSCULAR HGB CONC 33 g/dl (33.0-37.0); MEAN PLATELET VOLUME 9.3 fl (7.4-10.4); PLATELET COUNT 306 K/mm3 (130-400); RED BLOOD COUNT 3.95 M/mm3 (4.10-5.30); REDCELL DISTRIBUTION WIDTH-CV 14.7 % (11.5-14.5)
[2022-01-10 13:41] LABS: HEMATOCRIT 34.7 % (37.0-47.0)
[2022-01-10 13:58] LABS: ALBUMIN 3.8 gm/dL (3.5-5.0); BILIRUBIN,TOTAL 0.6 mg/dL (0.2-1.2); CALCIUM 8.7 mg/dL (8.4-10.2); CREATININE, serum 0.85 mg/dL (0.57-1.11); POTASSIUM 3.7 mmol/L (3.5-4.5); TOTAL PROTEIN 7.1 gm/dL (6.2-8.1)
[2022-01-10 14:19] LABS: BAND 1 % (0-10); EOSINOPHIL 1 % (0-4); LYMPHOCYTE 58 % (20.0-51.0); NEUTROPHILS 33 % (42.0-75.2); PLATELET ESTIMATE NORMAL (NORMAL)
[2022-01-10 15:15] VITALS: BP 120/64; PULSE 70; TEMP 97.7
== END 2022-01-10 15:50 | disposition home or self-care (01) ==
LOC: EUO 12:59
PROVIDERS: Psychiatry & Neurology Neurology
DX: G35 Multiple sclerosis (principal)
CPT/HCPCS: J2323

== ENCOUNTER 2022-01-13 08:47 | Day surgery (SDC) | payer OTHER ==
[~2022-01-13] VITALS: Ht 160 cm; Wt 62.4 kg
[2022-01-13 09:14] VITALS: BP 120/77; PULSE 88; TEMP 98.4
[2022-01-13 10:25] VITALS: BP 106/70; PULSE 70; TEMP 97.5
[2022-01-13 10:40] VITALS: BP 108/73; PULSE 60
[2022-01-13 10:55] VITALS: BP 119/71; PULSE 59
--- NOTE | 2022-01-13 11:20 | NUR ---
1025 PT RETURNED VIA CART. TRANSFERRED TO CHAIR WITH RN ASSIST. ALERT AND ORIENTED. MONITORS ATTACHED, INTERVALS AND ALARMS SET. VSS. PT DENIES PAIN OR NAUSEA. FOOD AND DRINK PROVIDED. CALL LIGHT IN REACH. 1040 VSS. PT DENIES DISCOMFORT. TOLERATING FOOD AND DRINK WELL. 1055 VSS. PT DENIES DISCOMFORT. REVIEWED DISCHARGE INSTRUCTIONS AND EDUCATION MATERIAL, ANSWERED ALL QUESTIONS. IV REMOVED WITHOUT COMPLICATIONS. PT ALLOWED TO DRESS. 1110 PT UP TO RESTROOM. 1120 TRANSFERRED PT VIA WHEELCHAIR TO PERSONAL VEHICLE TO BE DRIVEN HOME BY MOTHER.
== END 2022-01-13 11:20 | disposition home or self-care (01) ==
LOC: SDCO 08:47
DX: Z12.11 Encounter for screening for malignant neoplasm of colon (principal)
CPT/HCPCS: J2704; J7030

== ENCOUNTER 2022-02-07 11:25 | Outpatient (CLI) | payer OTHER ==
[~2022-02-07] VITALS: Ht 160 cm; Wt 69.1 kg
[2022-02-07 12:10] LABS: HEMOGLOBIN 11.5 g/dl (12.5-16.0); MEAN CELL VOLUME 89 fl (80.0-100.0); MEAN CORPUSCULAR HEMOGLOBIN 29 pg (27-31); MEAN CORPUSCULAR HGB CONC 33 g/dl (33.0-37.0); MEAN PLATELET VOLUME 9.8 fl (7.4-10.4); PLATELET COUNT 290 K/mm3 (130-400); RED BLOOD COUNT 3.93 M/mm3 (4.10-5.30); REDCELL DISTRIBUTION WIDTH-CV 14.7 % (11.5-14.5)
[2022-02-07 12:21] LABS: ALBUMIN 3.5 gm/dL (3.5-5.0); BILIRUBIN,TOTAL 0.4 mg/dL (0.2-1.2); CALCIUM 8.9 mg/dL (8.4-10.2); CREATININE, serum 0.86 mg/dL (0.57-1.11); POTASSIUM 3.7 mmol/L (3.5-4.5); TOTAL PROTEIN 6.7 gm/dL (6.2-8.1)
[2022-02-07 12:31] LABS: BAND 2 % (0-10); EOSINOPHIL 2 % (0-4); LYMPHOCYTE 45 % (20.0-51.0); NEUTROPHILS 44 % (42.0-75.2); PLATELET ESTIMATE NORMAL (NORMAL); STOMATOCYTE 1+
[2022-02-07] MEDS ORDERED: BUSPAR10 MG PO (12:34)
[2022-02-07 12:36] VITALS: BP 97/67; PULSE 68; TEMP 97.7
== END 2022-02-07 13:00 | disposition home or self-care (01) ==
LOC: EUO 11:25
PROVIDERS: Psychiatry & Neurology Neurology
DX: G35 Multiple sclerosis (principal)
CPT/HCPCS: J2323

== ENCOUNTER 2022-03-08 10:55 | Outpatient (CLI) | payer OTHER ==
[~2022-03-08] VITALS: Ht 160 cm; Wt 68.8 kg
[~2022-03-08 10:55] MED LIST changes: +BUSPAR10 MG PO
[2022-03-08 11:21] LABS: BASO % 0.4 % (0.0-2.0); EOS # 0.1 K/mm3 (0.0-0.7); EOS % 1.4 % (0.0-4.0); GRAN # 2.9 K/mm3 (1.4-6.5); GRAN % 40.4 % (42.2-75.2); HEMOGLOBIN 12.2 g/dl (12.5-16.0); LYMPH # 3.4 K/mm3 (1.2-3.4); LYMPH % 47.5 % (20.0-51.0); MEAN CELL VOLUME 89 fl (80.0-100.0); MEAN CORPUSCULAR HEMOGLOBIN 29 pg (27-31); MEAN CORPUSCULAR HGB CONC 33 g/dl (33.0-37.0); MEAN PLATELET VOLUME 9.7 fl (7.4-10.4); MONO # 0.7 K/mm3 (0.1-0.6); PLATELET COUNT 315 K/mm3 (130-400); RED BLOOD COUNT 4.16 M/mm3 (4.10-5.30); REDCELL DISTRIBUTION WIDTH-CV 14.5 % (11.5-14.5)
[2022-03-08 11:23] LABS: HEMATOCRIT 36.8 % (37.0-47.0)
[2022-03-08 11:40] LABS: ALBUMIN 4.1 gm/dL (3.5-5.0); BILIRUBIN,TOTAL 0.5 mg/dL (0.2-1.2); CALCIUM 9.9 mg/dL (8.4-10.2); CREATININE, serum 0.93 mg/dL (0.57-1.11); POTASSIUM 3.9 mmol/L (3.5-4.5); TOTAL PROTEIN 7.7 gm/dL (6.2-8.1)
[2022-03-08 12:08] VITALS: BP 129/51; PULSE 59; TEMP 98.1
--- NOTE | 2022-03-08 13:27 | NUR ---
Pt tolerated infusion without issue. IV DC'd, site wrapped with coban. Pt ambulates to restroom, then out of dept using cane, gait steady.
== END 2022-03-08 13:28 | disposition home or self-care (01) ==
LOC: EUO 10:55
PROVIDERS: Psychiatry & Neurology Neurology
DX: G35 Multiple sclerosis (principal)
CPT/HCPCS: J2323

== ENCOUNTER 2022-05-03 13:10 | Outpatient (CLI) | payer OTHER ==
[~2022-05-03] VITALS: Ht 160 cm; Wt 69.1 kg
[2022-05-03 13:43] LABS: BASO % 0.4 % (0.0-2.0); EOS # 0.1 K/mm3 (0.0-0.7); EOS % 1.7 % (0.0-4.0); GRAN # 2.3 K/mm3 (1.4-6.5); GRAN % 34.1 % (42.2-75.2); HEMOGLOBIN 12.2 g/dl (12.5-16.0); LYMPH # 3.7 K/mm3 (1.2-3.4); LYMPH % 53.8 % (20.0-51.0); MEAN CELL VOLUME 87 fl (80.0-100.0); MEAN CORPUSCULAR HEMOGLOBIN 30 pg (27-31); MEAN CORPUSCULAR HGB CONC 34 g/dl (33.0-37.0); MEAN PLATELET VOLUME 9.7 fl (7.4-10.4); MONO # 0.7 K/mm3 (0.1-0.6); MONO % 9.9 % (1.7-9.3); PLATELET COUNT 283 K/mm3 (130-400); REDCELL DISTRIBUTION WIDTH-CV 14.3 % (11.5-14.5)
[2022-05-03 13:45] LABS: HEMATOCRIT 35.8 % (37.0-47.0)
[2022-05-03 14:09] LABS: ALBUMIN 3.8 gm/dL (3.5-5.0); BILIRUBIN,TOTAL 0.4 mg/dL (0.2-1.2); CALCIUM 8.7 mg/dL (8.4-10.2); CREATININE, serum 0.9 mg/dL (0.57-1.11); POTASSIUM 4.1 mmol/L (3.5-4.5); TOTAL PROTEIN 7.2 gm/dL (6.2-8.1)
[2022-05-03 14:45] VITALS: BP 105/66; PULSE 72; TEMP 97.9
--- NOTE | 2022-05-03 15:42 | NUR ---
Pt tolerated infusion without issue. IV DC'd, site wrapped with coban. She ambulates out from dept with cane.
== END 2022-05-03 15:43 | disposition home or self-care (01) ==
LOC: EUO 13:10
PROVIDERS: Psychiatry & Neurology Neurology
DX: G35 Multiple sclerosis (principal)
CPT/HCPCS: J2323

== ENCOUNTER 2022-08-23 10:07 | Outpatient (CLI) | payer OTHER ==
[~2022-08-23] VITALS: Ht 160 cm; Wt 66.9 kg
[2022-08-23 10:35] LABS: BASO % 0.5 % (0.0-2.0); EOS # 0.1 K/mm3 (0.0-0.7); EOS % 1.4 % (0.0-4.0); GRAN # 2.7 K/mm3 (1.4-6.5); GRAN % 41.3 % (42.2-75.2); HEMATOCRIT 37.9 % (37.0-47.0); HEMOGLOBIN 12.6 g/dl (12.5-16.0); LYMPH # 3.1 K/mm3 (1.2-3.4); LYMPH % 47.4 % (20.0-51.0); MEAN CELL VOLUME 90 fl (80.0-100.0); MEAN CORPUSCULAR HEMOGLOBIN 30 pg (27-31); MEAN CORPUSCULAR HGB CONC 33 g/dl (33.0-37.0); MEAN PLATELET VOLUME 9.7 fl (7.4-10.4); MONO # 0.6 K/mm3 (0.1-0.6); MONO % 9.2 % (1.7-9.3); PLATELET COUNT 307 K/mm3 (130-400); RED BLOOD COUNT 4.23 M/mm3 (4.10-5.30); REDCELL DISTRIBUTION WIDTH-CV 14.7 % (11.5-14.5)
[2022-08-23 10:49] LABS: ALBUMIN 3.7 gm/dL (3.5-5.0); BILIRUBIN,TOTAL 0.5 mg/dL (0.2-1.2); CALCIUM 8.9 mg/dL (8.4-10.2); CREATININE, serum 0.83 mg/dL (0.57-1.11); POTASSIUM 4.4 mmol/L (3.5-4.5); TOTAL PROTEIN 7.2 gm/dL (6.2-8.1)
[2022-08-23 11:30] VITALS: BP 116/67; PULSE 68; TEMP 98
== END 2022-08-23 12:50 | disposition home or self-care (01) ==
LOC: EUO 10:07
PROVIDERS: Psychiatry & Neurology Neurology
DX: G35 Multiple sclerosis (principal)
CPT/HCPCS: J2323

== ENCOUNTER 2022-09-20 11:02 | Outpatient (CLI) | payer OTHER ==
[~2022-09-20] VITALS: Ht 160 cm; Wt 66.2 kg
[2022-09-20 11:42] LABS: MEAN CELL VOLUME 91 fl (80.0-100.0); MEAN CORPUSCULAR HEMOGLOBIN 30 pg (27-31); MEAN CORPUSCULAR HGB CONC 33 g/dl (33.0-37.0); MEAN PLATELET VOLUME 9.8 fl (7.4-10.4); PLATELET COUNT 249 K/mm3 (130-400); RED BLOOD COUNT 4.06 M/mm3 (4.10-5.30); REDCELL DISTRIBUTION WIDTH-CV 14.4 % (11.5-14.5)
[2022-09-20 11:45] VITALS: BP 118/75; PULSE 80; TEMP 97.9
[2022-09-20 11:49] LABS: HEMATOCRIT 36.9 % (37.0-47.0)
[2022-09-20 12:05] LABS: ALBUMIN 3.7 gm/dL (3.5-5.0); BILIRUBIN,TOTAL 0.4 mg/dL (0.2-1.2); CALCIUM 9.1 mg/dL (8.4-10.2); CREATININE, serum 0.86 mg/dL (0.57-1.11); POTASSIUM 4.3 mmol/L (3.5-4.5); TOTAL PROTEIN 7.1 gm/dL (6.2-8.1)
[2022-09-20 12:20] LABS: BAND 1 % (0-10); BASOPHIL 1 % (0-2); EOSINOPHIL 1 % (0-4); NEUTROPHILS 37 % (42.0-75.2)
[2022-09-20 12:24] LABS: PLATELET ESTIMATE NORMAL (NORMAL)
[2022-09-20 12:27] LABS: LYMPHOCYTE 51 % (20.0-51.0)
--- NOTE | 2022-09-20 13:09 | NUR ---
pt discharged at approx 1305. she ambulated to the [facility] with the use of her cane and was free from complaints or concerns at the time of discharge. AIVS was utilized to start her IV and Amber was able to place a 22G in her left hand. pt tolerated the infusion well and was given an appointment card with her next scheduled appointment listed on it. VS remained within normal limits during infusion.
[2022-09-21 08:25] LABS: PATHOLOGY DIFF REVIEW OK
== END 2022-09-20 13:10 ==
LOC: EUO 11:02
PROVIDERS: Psychiatry & Neurology Neurology
DX: G35 Multiple sclerosis (principal)
CPT/HCPCS: J2323

== ENCOUNTER 2022-10-16 11:00 | Outpatient (RCR) | payer OTHER ==
[2022-10-12 11:42] VITALS: BP 135/79; PULSE 91; TEMP 98.1
--- NOTE | 2022-10-12 13:13 | NUR ---
pt arrived to [facility] for initial infusion of methylprednisolone. the infusion ran over one hour and the pt tolerated the infusion well. her VS remained within her normal limits and she did not verbalize any signs or symptoms of adverse reaction. she was observed for 20 minutes following the infusion and was assisted to the main lobby via wheelchair and was able to independently ambulate to her car from lobby. pt verbalized understanding that she will come for four more consecutive infusions over the next four days. she was free from concerns and complaints at time of discharge. her IV was discontinued upon discharge.
--- NOTE | 2022-10-13 11:22 | NUR ---
Pt discharge via ambulatory.INT left in place for infusion tomorrow per pt request.Wrpped with spike.
[2022-10-14 09:51] VITALS: BP 120/78; PULSE 74; TEMP 97.5
[2022-10-15 09:43] VITALS: BP 127/81; PULSE 74; TEMP 97.8
[~2022-10-16] VITALS: Ht 160 cm; Wt 68.4 kg
[2022-10-16 09:41] VITALS: BP 116/68; PULSE 74; TEMP 97.9
[~2022-10-16 11:00] MED LIST changes: +SOLU-MEDRO1000 MG/1 IJ
== END 2022-10-17 10:15 ==
LOC: EUO 11:00
DX: G35 Multiple sclerosis (principal)
CPT/HCPCS: J2930; J7050

== ENCOUNTER 2024-02-14 11:06 | Outpatient (CLI) | payer OTHER ==
[~2024-02-14] VITALS: Ht 160 cm; Wt 65.0 kg
[2024-02-14] VITALS (7 sets, daily range): BP systolic 113–138; BP diastolic 70–90; PULSE 47–85; TEMP 98
[~2024-02-14 11:06] MED LIST changes: +OCREVUS300 MG/10 IV
[2024-02-14] MEDS ORDERED: [UNRECOGNIZED DRUG - OTHER] IV\\IM (11:45)
[2024-02-14] MEDS ORDERED: ACETAMINOPHEN 325 MG PO (11:45)
[2024-02-14] MEDS ORDERED: diphenhydrAMINE 50 MG/ML 1 ML VIAL IV ONE (11:45)
[2024-02-14] MEDS ORDERED: NS 1,000 ML IV @ 100 ML/HR PRN ALLERGIC REACTION IV (11:45)
[2024-02-14] MEDS ORDERED: DIPHENHYDRAMINE 50 MG/ML IV\\IM (11:45)
[2024-02-14] MEDS ORDERED: Acetaminophen 500 MG TAB PO ONE (11:45)
[2024-02-14] MEDS ORDERED: methylPREDNISolone Sod Succ 125 MG/2 ML VIAL IV X1 NOW IV ONE (11:45)
[2024-02-14] MEDS ORDERED: [UNRECOGNIZED DRUG - REMARK] IM (11:45)
[2024-02-14] MEDS ORDERED: Q4H PRN PO (11:45)
[2024-02-14 12:15] LABS: BASO % 0.2 % (0.0-2.0); EOS # 0.1 K/mm3 (0.0-0.7); EOS % 1.2 % (0.0-4.0); HEMATOCRIT 39.7 % (37.0-47.0); HEMOGLOBIN 13.1 g/dl (12.5-16.0); LYMPH # 1.6 K/mm3 (1.2-3.4); LYMPH % 38.1 % (20.0-51.0); MEAN CELL VOLUME 89 fl (80.0-100.0); MEAN CORPUSCULAR HEMOGLOBIN 30 pg (27-31); MEAN CORPUSCULAR HGB CONC 33 g/dl (33.0-37.0); MEAN PLATELET VOLUME 9.5 fl (7.4-10.4); MONO # 0.5 K/mm3 (0.1-0.6); MONO % 12.5 % (1.7-9.3); PLATELET COUNT 233 K/mm3 (130-400); RED BLOOD COUNT 4.44 M/mm3 (4.10-5.30); REDCELL DISTRIBUTION WIDTH-CV 13.3 % (11.5-14.5)
[2024-02-14 12:33] LABS: ALBUMIN 4.1 g/dL (3.5-5.0); BILIRUBIN,TOTAL 0.4 mg/dL (0.2-1.2); CALCIUM 9.4 mg/dL (8.4-10.2); CREATININE, serum 0.89 mg/dL (0.57-1.11); POTASSIUM 4.2 mEq/L (3.5-4.5); TOTAL PROTEIN 7.4 g/dl (6.2-8.1)
--- NOTE | 2024-02-14 15:48 | NUR ---
Pt taken out via wheelchair by this nurse.
[2024-02-14 22:33] LABS: IMMUNOGLOBULIN A 366 mg/dL (65-421); IMMUNOGLOBULIN G 946 mg/dL (552-1631); IMMUNOGLOBULIN M, QUANTITATIVE 98 mg/dL (33-293)
== END 2024-02-14 15:48 ==
LOC: EUO 11:06
PROVIDERS: Psychiatry & Neurology Neurology
DX: G35 Multiple sclerosis (principal)
CPT/HCPCS: J1200; J2350; J2919; J7040